=== PATIENT | male | born 1955 ===

== ENCOUNTER 2018-01-25 14:21 | Inpatient (IN) ==
[2018-01-25] MEDS ORDERED: Ondansetron 4 MG/2 ML VIAL IVP PRN (17:27)
[2018-01-25] MEDS ORDERED: Acetaminophen 325 MG TABLET PO PRN (17:28)
[2018-01-25 17:55] LABS: Basophils % 0.5 %; Eosinophils # 0.1 K/mcL (0.0-0.6); Eosinophils % 1.4 %; Hematocrit 29.2 % (37.5-50.1); Hemoglobin 9.1 g/dL (12.9-16.9); Immature Granulocytes % 0.5 % (0-4); Lymphocytes % 12.6 %; Mean Corpuscular HGB Conc 31.2 g/dL (31.6-35.5); Mean Corpuscular Hemoglobin 25.3 pg (28.0-33.3); Mean Corpuscular Volume 81.3 fL (83.0-100.0); Mean Platelet Volume 9.2 fL (9.4-12.4); Monocytes # 0.8 K/mcL (0.0-1.3); Monocytes % 9.5 %; Platelet Count 369 K/mcL (140-400); Red Blood Count 3.59 M/mcL (4.19-5.50); Red Cell Distribution Width 14.6 % (11.5-14.5); Segmented Neutrophils % 75.5 %
[2018-01-25] MEDS ORDERED: D5% in Water 1,000 ML IVC PRN (17:57)
[2018-01-25] MEDS ORDERED: Dextrose Gel 15 GM/37.5 ML TUBE PO PRN ×2 (17:57)
[2018-01-25] MEDS ORDERED: *HR* Dextrose 50 % in Water (Syg) 50 ML SYRINGE IVP PRN (17:57)
[2018-01-25 18:02] LABS: INR 1.2; Prothrombin Time 13.8 Seconds (9.4-12.1)
[2018-01-25] MEDS: OXYCODONE Oral CONC 10 MG/0.5 ML ORAL.SYG SL PRN (18:06)
[2018-01-25] MEDS: *HR* Heparin 5,000 UNIT/ML VIAL SQ SCH (18:07)
--- NOTE | 2018-01-25 18:11 | Internal Med History&Physical ---
<Elroy Wilkinson - Last Filed: 01/25/18 18:01> Date of Encounter: 01/25/18 Time of Encounter: 18:01 Internal Medicine - H&P: HPI Chief complaint: upper extremity weakness Admitted From: Home Plans for Post Hospital Care: Home History of present illness: Mr. Morales is a 62 year old male with a significant pmhx of Type II DM, cardiac stents and peripheral vascular stents on chronic dual antiplatelet therapy seen in the hospital for bilateral upper extremity weakness progressive over the past two months secondary to multiple levels of cervical stenosis. Mr. Morales says that he has had bilateral upper extremity discomfort for months with the worst of it noticable two months ago progressing to almost full loss of function of both upper extremities currently. He has difficulty holding utensils or any motion past flexing at his elbows. He has had pain in both shoulders with radiation down through his hands. He had been taking tylenol for his pain with little improvement. He has followed with Dr. Stubbs and admitted per his request. He denies any recent injuries, loss of bowel or bladder control. He occasionally has difficult with walking long distances do to lower back pain and radiation to his lower extremities. He occasionally has shortness of breath with increased activity. He denies any chest pain or discomfort. He denies any recent illness or other complaints. Past Med Surg Social Fam HX - Past Medical History Medical history: coronary artery disease, diabetes, hyperlipidemia, hypertension, kidney stones, renal disease Additional medical history: CKD stage IV, 4 cardiac stents, 3 stents in each leg Psychiatric history: anxiety, depression - Social History Smoking Status: Former smoker - Family History Mother Living Status: Hx Family Cardiac Disorders: Yes Hx Family Endocrine Disorder: Yes (DM) Internal Medicine - H&P: Meds Allergy/AdvReac Type Severity Reaction Status Date / Time No Known Allergies Allergy Verified 01/25/18 16:06 All Systems PM: A 10-system review of systems was performed and is negative for pertinent findings except as documented above in the HPI. - Constitutional Constitutional: as per HPI, no chills, no fever(s), no falls, no malaise - Cardiovascular Cardiovascular ROS IM: claudication, dyspnea on exertion, no chest pain, no diaphoresis - Respiratory Respiratory: no cough, no hemoptysis, no wheezing - Gastrointestinal Gastrointestinal: no abdominal pain, no constipation, no cramping, no diarrhea, no fecal incontinence - Genitourinary Genitourinary ROS male: no difficulty urinating, no urinary incontinence - Musculoskeletal Musculoskeletal ROS IM: back pain, limited range of motion, muscle weakness, myalgias, neck pain, numbness, tingling - Neurological Neurological ROS: numbness, paresthesias, radicular pain, weakness, no abnormal gait, no abnormal hearing, no abnormal movements, no dizziness - Constitutional Vitals: Temp Pulse Resp BP Pulse Ox 98.0 F 85 16 164/85 99 01/25/18 16:14 01/25/18 16:14 01/25/18 16:14 01/25/18 16:14 01/25/18 16:14 General appearance: Present: A&O X 3 Exam: Gen: alert, oriented, no acute distress, interactive HEENT: NC/AT PERRLA, oral mucosa is moist, neck supple, patient hesitant to perform movements Cardiac: RRR, +S1/S2, Radial pulses 2+ bl Respiratory: CTABL Abdomen: soft nontender to palpation, +BS Extremities/neurology: bilateral upper extremities with 1/5 muscle strength with abduction/adduction/flextion and extension at the glenhumoral joints, 3/5 strength at b/l elbow flexion and 2/5 b/l agronomy internship strength. patient has retained sensation in b/l upper extremities, B/l LE have 5/5 muscle strength. brachial reflex deminished b/l, LE pateller reflex demonstrates 3+ relex on right and 2+ on left. Internal Med - H&P Results - Labs CBC & Chem 7: 01/25/18 17:41 Labs: Short CBC 01/25/18 Range/Units 17:41 WBC 7.9 (4.3-11.1) K/mcL Hgb 9.1 L (12.9-16.9) g/dL Hct 29.2 L (37.5-50.1) % Plt Count 369 (140-400) K/mcL Neutrophils # 6.0 (1.6-8.9) K/mcL - Assessment and plan (1) Cervical stenosis of spinal canal Current Visit: Yes Status: Acute Assessment and plan: multiple levels of central canal stenosis notable at C3/C4, C4/C5, and C5/C6. Patient is symptomatic with significant b/l upper extremity weakness. Plan: - hold plavix and continue ASA prior to surgical intervention - surgical procedure per Dr. 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 (2) PVD (peripheral vascular disease) Current Visit: Yes Status: Acute Assessment and plan: Known hx with stents. - Continue ASA, holding plavix prior to procedure. (3) CAD (coronary artery disease) Current Visit: Yes Status: Acute Assessment and plan: significant CAD hx with cardiac stents in 2004 and PAD stents in 2006 - patient is on dual antiplatelet therapy prior to admission. Qualifiers: Qualified Code(s): I25.10 - Atherosclerotic heart disease of [place] coronary artery without angina pectoris (4) Chronic renal disease, stage IV Current Visit: Yes Status: Acute Assessment and plan: Patient has stated CKD stage IV. 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 - Continue glucose monitoring ACHS - Sliding scale insulin and basal dosing (6) DVT prophylaxis Current Visit: Yes Status: Acute Assessment and plan: SCDs (7) Microcytic anemia Current Visit: Yes Status: Acute Assessment and plan: Hgb 9.1 MCV 81.3 Possibly secondary to chronic kidney disease - monitor with CBC - patient on dual antiplatelet therapy - Time Spent With Patient Total time spent is greater than 50% in coordination of care (as documented) at patient's floor/unit and/or counseling patient: <ShivaKash Uchepraveena - Last Filed: 01/25/18 22:22> Date of Encounter: 01/25/18 Internal Medicine - H&P: HPI History of present illness: Mr. Morales is a 62 year old male All Systems PM: A 10-system review of systems was performed and is negative for pertinent findings except as documented above in the HPI. - Constitutional Vitals: Temp Pulse Resp BP Pulse Ox 98.8 F 102 15 174/81 96 01/25/18 18:54 01/25/18 18:54 01/25/18 18:54 01/25/18 18:54 01/25/18 18:54 Internal Med - H&P Results - Labs CBC & Chem 7: 01/25/18 17:41 01/25/18 17:41 Labs: Short CBC 01/25/18 Range/Units 17:41 WBC 7.9 (4.3-11.1) K/mcL Hgb 9.1 L (12.9-16.9) g/dL Hct 29.2 L (37.5-50.1) % Plt Count 369 (140-400) K/mcL Neutrophils # 6.0 (1.6-8.9) K/mcL BMP 01/25/18 17:41 Sodium 136 Potassium 4.3 Chloride 103 Carbon Dioxide 23 BUN 33 H Creatinine 1.57 H Glucose 147 H Calcium 9.6 - Assessment and plan (1) Cervical stenosis of spinal canal Current Visit: Yes Status: Acute (2) PVD (peripheral vascular disease) Current Visit: Yes Status: Acute (3) CAD (coronary artery disease) Current Visit: Yes Status: Acute Qualifiers: Qualified Code(s): I25.10 - Atherosclerotic heart disease of [place] coronary artery without angina pectoris (4) Chronic renal disease, stage IV Current Visit: Yes Status: Acute (5) 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 I agree with the documented findings, disposition and treatment plan as described except to the extent set forth below. We independently had [id number] contact with the patient.
[2018-01-25 18:15] LABS: Calcium 9.6 mg/dL (8.6-10.3); Potassium 4.3 mEq/L (3.5-5.1)
[2018-01-25] MEDS: Insulin LISPRO 300 UNITS/3 ML VIAL SQ SCH (21:24)
[2018-01-25] MEDS: traMADol 50 MG TABLET PO PRN (21:25)
[2018-01-25] MEDS: Insulin DETEMIR 100 UNIT/ML X5UNITS SQ SCH (21:25)
[2018-01-25] MEDS: Aspirin Enteric Coated 81 MG Tablet PO SCH (22:45)
[2018-01-26] MEDS: OXYCODONE Oral CONC 10 MG/0.5 ML ORAL.SYG SL PRN ×2 (02:05→20:08)
[2018-01-26] MEDS: *HR* Heparin 5,000 UNIT/ML VIAL SQ SCH ×2 (05:25→17:41)
[2018-01-26 05:37] LABS: Hematocrit 27.4 % (37.5-50.1); Hemoglobin 8.5 g/dL (12.9-16.9); Mean Corpuscular Hemoglobin 25.7 pg (28.0-33.3); Mean Corpuscular Volume 82.8 fL (83.0-100.0); Mean Platelet Volume 9.6 fL (9.4-12.4); Platelet Count 324 K/mcL (140-400); Red Blood Count 3.31 M/mcL (4.19-5.50); Red Cell Distribution Width 14.9 % (11.5-14.5)
[2018-01-26 05:55] LABS: Calcium 9.1 mg/dL (8.6-10.3); Potassium 4.3 mEq/L (3.5-5.1)
[2018-01-26] MEDS: Insulin LISPRO 300 UNITS/3 ML VIAL SQ SCH ×4 (07:52→20:37)
--- NOTE | 2018-01-26 08:50 | Internal Med Progress Note ---
<Xavier Boone - Last Filed: 01/26/18 14:57> Hospitalist Progress Note - Encounter Date of Encounter: 01/26/18 Time of Encounter: 08:50 - Subjective Interval History: Patient was seen and examined. In the room, the patient was awake and alert, seated in chair. He states that his symptoms of bilateral upper extremity pain and weakness have not changed since yesterday, and that he is still experiencing moderate to severe pain that is worsened with movement of the extremities. He denies pain in his neck, or any other location on his back, stating that the discomfort is localized to the upper extremities. He also complains of swelling in his hands, worse on the right than the left, that seems to contribute to his pain. He claims that he has been experiencing this swelling periodically for about a month. He endorses recent changes in his gait and weakness in standing up from a seated position. His and daughter, who are in the room, confirm the change in gait, describing it as shuffling and appearing off-balance. He denies any urine or bowel incontinence, pain or numbness in the lower extremities. He denies fever or chills, any vision changes, facial drooping, changes in speech, chest pain or SOB. There were no acute events over night. - Exam Vitals: Temp Pulse Resp BP Pulse Ox 97.9 F 78 15 131/70 97 01/26/18 06:40 01/26/18 06:40 01/26/18 06:40 01/26/18 06:40 01/26/18 06:40 Exam: General: 62 y/o male awake, alert and in NAD sitting conformably in chair H.E.E.N.T: Sclera anicteric, mucus membranes moist, trachea midline Cardiovascular: RRR, no murmurs, normal S1/S2, rubs, or gallops Respiratory: LCTA bilaterally, no wheezing, crackles or rhonchi Abdomen: Soft, non-distended, non-tender, no guarding, bowel sounds present and normal throughout Extremities: no cyanosis, no clubbing, no edema in upper or lower extremities Neuro: weakness and significant reduction in ROM in bilateral upper extremities, no other apparent focal deficits Psych: Behavior and affect appropriate for situation - Assessment and Plan (1) Cervical stenosis of spinal canal Current Visit: Yes Status: Acute Assessment and Plan: Patient is a 62 y/o male who presented for evaluation of persistent, worsening bilateral upper extremity pain and weakness. The patient follows with a neurologist who has identified cervical spinal stenosis on prior MRI. The patient is scheduled to undergo anterior cervical decompression with fusion of C4-C6 either later this week or early next week. Plavix still being held. Continue to provide appropriate pain control consult to cardiology for cardiac clearance prior to surgery due to his multiple co morbidities and cardiac risk factors. (2) CAD (coronary artery disease) Current Visit: Yes Status: Chronic Assessment and Plan: significant CAD hx with cardiac stents in 2004 and PAD stents in 2006 On dual antiplatelet therapy with ASA and Plavix Continue current statin, aspirin. holding plavix in anticipation for surgery. 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 (5) PVD (peripheral vascular disease) Current Visit: Yes Status: Chronic Assessment and Plan: Patient currently on statin therapy (6) DVT prophylaxis Current Visit: Yes Status: Acute Assessment and Plan: Continue Heparin SQ 5,000 units (7) Microcytic anemia Current Visit: Yes Status: Acute Assessment and Plan: Recommend continuation of Ferrous sulfate - Time Spent with Patient Total time spent is greater than 50% in coordination of care (as documented) at patient's floor/unit and/or counseling patient: 25 - 35 minutes Plan of Care Discussed with: patient Internal Medicine: Result - Labs CBC & Chem 7: 01/26/18 05:00 01/26/18 05:00 Labs: Short CBC 01/25/18 01/26/18 Range/Units 17:41 05:00 WBC 7.9 7.1 (4.3-11.1) K/mcL Hgb 9.1 L 8.5 L (12.9-16.9) g/dL Hct 29.2 L 27.4 L (37.5-50.1) % Plt Count 369 324 (140-400) K/mcL Neutrophils # 6.0 (1.6-8.9) K/mcL BMP 01/25/18 01/26/18 17:41 05:00 Sodium 136 136 Potassium 4.3 4.3 Chloride 103 102 Carbon Dioxide 23 25 BUN 33 H 34 H Creatinine 1.57 H 1.62 H Glucose 147 H 139 H Calcium 9.6 9.1 - ABG Interpretation ABG results: PT/INR, D-dimer PT 13.8 Seconds (9.4-12.1) H 01/25/18 17:41 Consult Discharge Plan - Plan Referrals: NONE,PCP [Primary Care Provider] - <Tasha Shannon - Last Filed: 01/26/18 22:20> Hospitalist Progress Note - Encounter Date of Encounter: 01/26/18 - Exam Vitals: Temp Pulse Resp BP Pulse Ox 98.5 F 89 16 146/79 99 01/26/18 18:37 01/26/18 18:37 01/26/18 18:37 01/26/18 18:37 01/26/18 18:37 - Assessment and Plan (1) Cervical stenosis of spinal canal Current Visit: Yes Status: Acute (2) PVD (peripheral vascular disease) Current Visit: Yes Status: Chronic (3) CAD (coronary artery disease) Current Visit: Yes Status: Chronic (4) Chronic renal disease, stage IV Current Visit: Yes Status: Chronic (5) 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 Current Visit: Yes Status: Chronic (6) DVT prophylaxis Current Visit: Yes Status: Acute (7) Microcytic anemia Current Visit: Yes Status: Acute - Time Spent with Patient Total time spent is greater than 50% in coordination of care (as documented) at patient's floor/unit and/or counseling patient: Internal Medicine: Result - Labs CBC & Chem 7: 01/26/18 05:00 01/26/18 05:00 Labs: Short CBC 01/26/18 Range/Units 05:00 WBC 7.1 (4.3-11.1) K/mcL Hgb 8.5 L (12.9-16.9) g/dL Hct 27.4 L (37.5-50.1) % Plt Count 324 (140-400) K/mcL BMP 01/26/18 05:00 Sodium 136 Potassium 4.3 Chloride 102 Carbon Dioxide 25 BUN 34 H Creatinine 1.62 H Glucose 139 H Calcium 9.1 - ABG Interpretation ABG results: PT/INR, D-dimer PT 13.8 Seconds (9.4-12.1) H 01/25/18 17:41 - Attending Attestation I examined this patient and my medical decision making was reviewed with the Resident Physician. I agree with the documented findings, disposition and treatment plan as described except to the extent set forth below. We independently had [id number] contact with the patient. _ <Xavier Boone - Last Filed: 01/26/18 14:57> (2) CAD (coronary artery disease) Qualifiers: Coronary Disease-Associated Artery/Lesion type: [place] artery [place] vs. transplanted heart: [place] heart Associated angina: without angina Qualified Code(s): I25.10 - Atherosclerotic heart disease of [place] coronary artery without angina pectoris <Tasha Shannon - Last Filed: 01/26/18 22:20> (3) CAD (coronary artery disease) Qualifiers: Coronary Disease-Associated Artery/Lesion type: [place] artery [place] vs. transplanted heart: [place] heart Associated angina: without angina Qualified Code(s): I25.10 - Atherosclerotic heart disease of [place] coronary artery without angina pectoris
[2018-01-26] MEDS ORDERED: INSULIN GLARGINE 22 UNIT SQ SCH (09:00)
[2018-01-26] MEDS: Aspirin Enteric Coated 81 MG Tablet PO SCH (09:21)
[2018-01-26] MEDS: Cyanocobalamin (B-12) 1,000 MCG TABLET PO SCH (09:24)
--- NOTE | 2018-01-26 10:54 | Spinal Consult Note ---
Date of Encounter: 01/26/18 Time of Encounter: 10:45 Assessment and Plan (1) Cervical myelopathy Current Visit: Yes Status: Chronic He is afebrile, vital signs stable. he has significant weakness with weakness and limitation in abduction bilaterally, biceps, triceps, external rotators all approximately 3 on a motor scale. Substitute Nurse strength is markedly diminished. He has a positive Hoffmans sign. He has a positive inverted radial reflex. His hips move symmetrically. Motor strength is intact in the bilateral lower extremities. He has no clonus. MRI of the cervical spine dated 01/12/2018 reveals multilevel degenerative changes and disc desiccation. There is severe stenosis with spinal cord compression at C4-5 and C5-6. There is some bilateral foraminal stenosis which is moderate at C3-4. Impression. 1) Severe cervical stenosis 2) Cervical Myelopathy 3) Progressive upper extremity weakness. Plan: Due to his severe findings on cervical MRI, abnormal neurologic evaluation including upper motor neuron findings, and progressive weakness I find it reasonable to consider surgery in the form of an anterior cervical decompression and fusion C4-C6. The patient has multiple medical comorbidities including chronic anti-coagulation therapy with Plavix. He will need medical op including holding his Plavix for 5 days for optimal surgical result without complication. Risk, benefits, possible complications were discussed and the patient would like to proceed. (2) Upper extremity weakness Current Visit: Yes Status: Chronic History of Present Illness Chief complaint: Severe weakness in arms, hands HPI: Mr. Morales is a 62 year old male who complains of a two month history of progressive weakness in the bilateral upper extremities. He has reached the point where he cannot lift his arms to sh oulder level and he has severe impairment in hand dexterity such that he can no longer utensils. He is now developing some gait instability. He was seen in the office setting and due to aggressive neurologic compromise was admitted for definitive management. He has a history of mulltiple severe medical comorbidities including coronary artery disease, cardiac and peripheral stent placement, chronic anticoagulation, diabetes, and stage IV renal failure. He is on the hospitalist service for medical optimization and clearance prior to surgical intervention. Past Med Surg Social Fam HX - Past Medical History Medical history: coronary artery disease, diabetes, hyperlipidemia, hypertension, kidney stones, renal disease Additional medical history: CKD stage IV, 4 cardiac stents, 3 stents in each leg Psychiatric history: anxiety, depression - Social History Smoking Status: Former smoker - Family History Mother Living Status: Hx Family Cardiac Disorders: Yes Hx Family Endocrine Disorder: Yes (DM) Medications and Allergies Aspirin [Adult Aspirin] 81 mg PO DAILY 01/25/18 [History] Clopidogrel [Plavix] 75 mg PO DAILY 01/25/18 [History] Cyanocobalamin (Vitamin B-12) [Vitamin B12] 1,000 mcg PO DAILY 01/25/18 [History] Ferrous Sulfate [Iron] 325 mg PO BID 01/25/18 [History] Insulin ASPART [NovoLOG] See Protocol SQ TIDWM 01/25/18 [History] Insulin Glargine [Lantus] 22 units SQ DAILY 01/25/18 [History] Losartan [Cozaar] 50 mg PO DAILY 01/25/18 [History] Lovastatin 40 mg PO DAILY 01/25/18 [History] Metoprolol [Lopressor] 12.5 mg PO BID 01/25/18 [History] [place]-3/Dha/Epa/Fish Oil [Fish Oil 1,000 mg Softgel] 1,000 mg PO DAILY 01/25/18 [History] Allergy/AdvReac Type Severity Reaction Status Date / Time No Known Allergies Allergy Verified 01/25/18 16:06 Results - Labs Result Diagrams: 01/26/18 05:00 01/26/18 05:00 Labs: Abnormal lab results RBC 3.31 M/mcL (4.19-5.50) L 01/26/18 05:00 Hgb 8.5 g/dL (12.9-16.9) L 01/26/18 05:00 Hct 27.4 % (37.5-50.1) L 01/26/18 05:00 MCV 82.8 fL (83.0-100.0) L 01/26/18 05:00 MCH 25.7 pg (28.0-33.3) L 01/26/18 05:00 MCHC 31.0 g/dL (31.6-35.5) L 01/26/18 05:00 RDW 14.9 % (11.5-14.5) H 01/26/18 05:00 PT 13.8 Seconds (9.4-12.1) H 01/25/18 17:41 BUN 34 mg/dL (8-23) H 01/26/18 05:00 Creatinine 1.62 mg/dL (0.70-1.30) H 01/26/18 05:00 Est GFR ( Amer) 52 (> 60) L 01/26/18 05:00 Est GFR (Non-Af Amer) 43 (> 60) L 01/26/18 05:00 Glucose 139 mg/dL (70-105) H 01/26/18 05:00 POC Glucose 306 mg/dL (70-99) H 01/25/18 20:25 H & H 01/25/18 01/26/18 Range/Units 17:41 05:00 Hgb 9.1 L 8.5 L (12.9-16.9) g/dL Hct 29.2 L 27.4 L (37.5-50.1) % All other labs normal. Consult Discharge Plan - Plan Referrals: NONE,PCP [Primary Care Provider] -
--- NOTE | 2018-01-26 14:30 | Cardiology Consult Note ---
<Vishal Lopez - Last Filed: 01/26/18 15:15> Date of Encounter: 01/26/18 Time of Encounter: 14:24 Assessment and Plan (1) Preop cardiovascular exam Current Visit: Yes Status: Acute 62 y/o male admitted for severe cervical spinal stenosis with plan for anterior cervical spinal decompression former smoker (last smoked in 1988), no hx of CVA RSI risk is 3 points which is Class IV with 11% major cardiac event. patient follow Dr. Argueta at [place] and no records are on file for his cardiac history. Will need to obtain echocardiogram, previous cardiac stress testing, procedures He also is noted to have microcytic anemia unclear etiology, Patient is on aspirin plavix. reports his diabetes is not controlled but we do not have records ECG shows sinus rhythm with rate of 90 with non-specific st-twave changes, LVH, without ST elevation or depression. Patient is high risk based solely on RCRI as stated above. However, we also do not have records from his PCP/[employer] [employer] [facility] to evaluate his LV function, functional status. We have requested records. We will also order echocardiogram. 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 Qualifiers: Coronary Disease-Associated Artery/Lesion type: [place] artery [place] vs. 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 (7) Microcytic anemia Current Visit: Yes Status: Acute unclear etiology of microcytic anemia patient is on iron supplementation unclear if he has had GI evaluation for the anemia will obtain records Discussion w patient/family: The assessment and plan as outlined above was discussed with the patient and/or family members who expressed understanding and agreement. All questions were answered. Thank you for involving us in the care of your patient. Please call with any questions. History of Present Illness Consult date: 01/26/18 Consult reason: cardiac clearance Chief complaint: weakness in arms and hands History of present illness: Mr. Morales is a 62 year old male hx of CAD s/p PCI, CKD 4, DM, presents with cc of severe weaness in arms and hands. Patient has been followed by Dr. Stubbs for cervical myelopathy and has progressive weakness in the last two months with b/l upper extremity weakness. Patient has severe stenosis with spinal cord compression at C4-5 and C5-6. Spinal surgery is planning on anterior cerbical decompression and fusion of C4-C6 and requested cardiac clearance. Patient has history of CAD on aspirin, plavix, statin with last PCI in 2004. He follows [facility] at [place] Dr. Argueta. Also reports he had PVD and stent placed in his LLE in 2006. Since then patient has not had any cardiac events. He is a former smoker and quit 1988. He denies drinking alcohol. Patient reports his DM is not controlled but we do not have any records to review this. His last surgery was three years ago for renal stone extraction and he did not have any complications from this. Reports he is able to walk long distances but this is limited due to pain in his b/l shoulders but denies exertional dsypena or chest pain. Past Med Surg Social Fam HX - Past Medical History Medical history: coronary artery disease, diabetes, hyperlipidemia, hypertension, kidney stones, renal disease Additional medical history: CKD stage IV, 4 cardiac stents, 3 stents in each leg Psychiatric history: anxiety, depression - Social History Smoking Status: Former smoker - Family History Mother Living Status: Hx Family Cardiac Disorders: Yes Hx Family Endocrine Disorder: Yes (DM) Medications and Allergies Aspirin [Adult Aspirin] 81 mg PO DAILY 01/25/18 [History] Clopidogrel [Plavix] 75 mg PO DAILY 01/25/18 [History] Cyanocobalamin (Vitamin B-12) [Vitamin B12] 1,000 mcg PO DAILY 01/25/18 [History] Ferrous Sulfate [Iron] 325 mg PO BID 01/25/18 [History] Insulin ASPART [NovoLOG] See Protocol SQ TIDWM 01/25/18 [History] Insulin Glargine [Lantus] 18 - 22 units SQ DAILY 01/25/18 [History] Losartan [Cozaar] 50 mg PO DAILY 01/25/18 [History] Lovastatin 40 mg PO DAILY 01/25/18 [History] Metoprolol [Lopressor] 12.5 mg PO BID 01/25/18 [History] [place]-3/Dha/Epa/Fish Oil [Fish Oil 1,000 mg Softgel] 1,000 mg PO DAILY 01/25/18 [History] Diclofenac Sodium [Voltaren] 1 applic TP BID PRN 01/26/18 [History] Allergy/AdvReac Type Severity Reaction Status Date / Time No Known Allergies Allergy Verified 01/26/18 14:50 All Systems Review: The remainder of the systems were reviewed and are negative Review of Systems: Constitutional: Denies fever, chills HEENT: Denies headache, trauma, blurry vision, eye discharge, ear pain, ear discharge neck pain, sore throat, rhinorrhea Heart: Denies chest pain palpitations, LE edema Lungs: Denies shortness of breath cough Abdomen: Denies abdominal pain nausea vomiting diarrhea MSK: Denies back pain, falls, joint pain Kidney: Denies dysuria, hematuria Skin: Denies rash, ulcers Neuro: Reports weakness in bilateral upper extremities unable to lift bilateral arms above shoulder. Psych: denies axniety, depression Physical Examination Vital Signs, Last 4 Hours Temp Pulse Resp BP Pulse Ox 01/26/18 11:43 97.8 F 77 15 126/63 99 General: Conversant, No Apparent Distress HEENT: Atraumatic, Normocephaly, Mucus Membranes Moist Neck: No JVD, Normal carotid pulses Cardiac: Reg Rate and Rhythm, Normal S1 and S2, No Murmur Lungs: Normal Breath Sounds, No Wheeze, Rales, Rhonchi Neuro: Alert and responsive, Other (b/l UE weakness.) Abdomen: Soft, Non-Tender Skin: No rashes noted on visualized skin Musculoskeletal: No Chest Wall Tenderness Extremities: No Clubbing, No Cyanosis, No Edema, Normal Pulses Results 01/26/18 05:00 01/26/18 05:00 Lab Results 01/25/18 01/25/18 01/25/18 17:41 17:41 17:41 WBC 7.9 Hgb 9.1 L Hct 29.2 L Plt Count 369 INR 1.2 Sodium 136 Potassium 4.3 Chloride 103 Carbon Dioxide 23 BUN 33 H Creatinine 1.57 H Glucose 147 H Calcium 9.6 01/26/18 01/26/18 05:00 05:00 WBC 7.1 Hgb 8.5 L Hct 27.4 L Plt Count 324 INR Sodium 136 Potassium 4.3 Chloride 102 Carbon Dioxide 25 BUN 34 H Creatinine 1.62 H Glucose 139 H Calcium 9.1 Consult Discharge Plan - Plan Referrals: NONE,PCP [Primary Care Provider] - <Kamilla Hylton - Last Filed: 01/26/18 16:39> Date of Encounter: 01/26/18 - Attending Attestation I examined this patient and my medical decision-making was reviewed with the Joni fabian Physician. I agree with the documented findings, disposition and treatment plan as described except to the extent set forth below. Mr. Morales is admitted to the hospital pre procedurally prior to undergoing Anterior Cervical Spinal Decompression for spinal stenosis. Patient sitting up with at bedside. Denies any recent chest pain. Admits to poor functional capacity as a result of orthopedic limitations. Follows with Cardiology in [place], Dr. Argueta, last seen about 6 months ago. Last stress test several years ago. AAOx3, NAD Vital signs stable Exam demonstrates regular rhythm, no appreciable cardiac murmur, bowel sounds present, no significant LE edema, palpable pedal pulses Labs reviewed ECG from admission demonstrates NSR, possible LVH without acute ST findings Impression: 1. Preoperative Cardiovascular Risk Assessment: Patient denies cardiac symptoms but endorses poor functional capacity. RCRI is 2 placing patient at moderate risk. He hasn't had an ischemic evaluation in quite some time and has known CAD. In anticipation of spinal surgery under general anesthesia, would recommend an ischemic evaluation with stress testing help with risk stratifica tion. Patient and aware and agree. Will plan for Wednesday given the . Assessment and Plan Discussion w patient/family: The assessment and plan as outlined above was discussed with the patient and/or family members who expressed understanding and agreement. All questions were answered. Thank you for involving us in the care of your patient. Please call with any questions. History of Present Illness History of present illness: Mr. Morales is a 62 year old male All Systems Review: The remainder of the systems were reviewed and are negative Physical Examination Vital Signs, Last 4 Hours Temp Pulse Resp BP Pulse Ox 01/26/18 16:30 98.1 F 79 14 130/77 100 Results 01/26/18 05:00 01/26/18 05:00 Lab Results 01/25/18 01/25/18 01/25/18 17:41 17:41 17:41 WBC 7.9 Hgb 9.1 L Hct 29.2 L Plt Count 369 INR 1.2 Sodium 136 Potassium 4.3 Chloride 103 Carbon Dioxide 23 BUN 33 H Creatinine 1.57 H Glucose 147 H Calcium 9.6 01/26/18 01/26/18 05:00 05:00 WBC 7.1 Hgb 8.5 L Hct 27.4 L Plt Count 324 INR Sodium 136 Potassium 4.3 Chloride 102 Carbon Dioxide 25 BUN 34 H Creatinine 1.62 H Glucose 139 H Calcium 9.1
[2018-01-26] MEDS: Insulin DETEMIR 100 UNIT/ML X5UNITS SQ SCH (20:35)
[2018-01-27] MEDS: OXYCODONE Oral CONC 10 MG/0.5 ML ORAL.SYG SL PRN ×3 (02:36→16:49)
[2018-01-27 05:33] LABS: Basophils % 0.6 %; Eosinophils # 0.2 K/mcL (0.0-0.6); Hemoglobin 8.3 g/dL (12.9-16.9); Immature Granulocytes % 0.8 % (0-4); Lymphocytes # 1.3 K/mcL (0.6-4.6); Lymphocytes % 19.9 %; Mean Corpuscular HGB Conc 30.7 g/dL (31.6-35.5); Mean Corpuscular Hemoglobin 25.3 pg (28.0-33.3); Mean Corpuscular Volume 82.3 fL (83.0-100.0); Mean Platelet Volume 9.5 fL (9.4-12.4); Monocytes # 0.9 K/mcL (0.0-1.3); Monocytes % 14.6 %; Neutrophils # 3.8 K/mcL (1.6-8.9); Platelet Count 306 K/mcL (140-400); Red Blood Count 3.28 M/mcL (4.19-5.50); Segmented Neutrophils % 61.1 %
[2018-01-27] MEDS: *HR* Heparin 5,000 UNIT/ML VIAL SQ SCH ×2 (05:42→17:05)
[2018-01-27 05:55] LABS: Calcium 8.7 mg/dL (8.6-10.3); Potassium 4.2 mEq/L (3.5-5.1)
[2018-01-27] MEDS ORDERED: 0.9 % Sodium Chloride 1,000 ML IVC SCH (06:15)
[2018-01-27] MEDS: Insulin LISPRO 300 UNITS/3 ML VIAL SQ SCH ×4 (08:00→21:53)
--- NOTE | 2018-01-27 08:02 | Internal Med Progress Note ---
<Xavier Boone Raoul - Last Filed: 01/27/18 12:07> Hospitalist Progress Note - Encounter Date of Encounter: 01/27/18 Time of Encounter: 08:00 - Subjective Interval History: Patient was seen and examined. No acute events overnight. Patient is still awaiting surgery which is anticipated for 01/28. No coagulation studies to report today. Cardiology has ordered myocardial perfusion scan for tomorrow morning for preoperative evaluation. In the room, the patient is awake and alert, seated in chair having breakfast. He is still experiencing symptoms of bilateral upper extremity pain and weakness that is unchanged since yesterday, and that he is still experiencing moderate to severe pain that is worsened with movement of the extremities. He denies any worsening pain or weakness in the lower extremities. He reports improvement in swelling of his hands, but is still experiencing moderate pain in both hands. He denies any urine or bowel incontinence, but reports that he hasn't had a bowel movement in 2 days, stating that he typically has bowel movements daily. He denies any episodes of slurred speech, vision changes or confusion. He denies pain, numbness or swelling in the lower extremities. He denies fever or chills, chest pain or SOB. - Exam Vitals: Temp Pulse Resp BP Pulse Ox 98.7 F 76 16 131/75 97 01/27/18 06:58 01/27/18 06:58 01/27/18 06:58 01/27/18 06:58 01/27/18 06:58 Exam: General: 62 y/o male awake, alert and in NAD sitting conformably in chair H.E.E.N.T: Sclera anicteric, mucus membranes moist, PERRL Cardiovascular: RRR, normal S1/S2, no murmurs, rubs or gallops Respiratory: LCTA bilaterally, no wheezing, crackles or rhonchi Abdomen: soft, non-distended, non-tender, no guarding, bowel sounds present and normal throughout Extremities: no cyanosis, no clubbing, no edema in upper or lower extremities Neuro: weakness and significant reduction in ROM in bilateral upper extremities, no other apparent focal deficits Psych: Behavior and affect appropriate for situation - Assessment and Plan (1) Cervical stenosis of spinal canal Current Visit: Yes Status: Acute Assessment and Plan: Patient is a 62 y/o male who presented for evaluation of persistent, worsening bilateral upper extremity pain and weakness. The patient follows with spinal surgeon who has identified significant cervical spinal stenosis on prior MRI. The patient is scheduled to undergo anterior cervical decompression with fusion of C4-C6 either later this week or early next week. Plavix still being held. Continue to provide appropriate pain control consult to cardiology for cardiac clearance prior to surgery due to his multiple comorbidities and cardiac risk factors. (2) CAD (coronary artery disease) Current Visit: Yes Status: Chronic Assessment and Plan: significant CAD hx with cardiac stents in 2004 and PAD stents in 2006 On dual antiplatelet therapy with ASA and Plavix Cardiology has ordered myocardial perfusion scan for preoperative evaluation to be performed tomorrow morning. Echocardiogram performed yesterday showed EF of 50%, mild LV diastolic dysfunction and no significant valvular dysfunction Continue current statin, aspirin. holding plavix in anticipation for surgery. (3) Chronic renal disease, stage IV Current Visit: Yes Status: Chronic Assessment and Plan: Kidney function worsening with increase in SCr to 1.7 today; will 1 L IVNS and re-evaluate BMP. 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 Current Visit: Yes Status: Chronic Assessment and Plan: Continue regimen with low-dose sliding scale (5) PVD (peripheral vascular disease) Current Visit: Yes Status: Chronic Assessment and Plan: Continue current statin therapy (6) DVT prophylaxis Current Visit: Yes Status: Acute Assessment and Plan: Continue heparin 5,000 units SQ daily (7) Microcytic anemia Current Visit: Yes Status: Acute Assessment and Plan: Continue current ferrous sulfate regimen - Time Spent with Patient Total time spent is greater than 50% in coordination of care (as documented) at patient's floor/unit and/or counseling patient: Internal Medicine: Result - Labs CBC & Chem 7: 01/27/18 05:02 01/27/18 05:02 Labs: Short CBC 01/27/18 Range/Units 05:02 WBC 6.3 (4.3-11.1) K/mcL Hgb 8.3 L (12.9-16.9) g/dL Hct 27.0 L (37.5-50.1) % Plt Count 306 (140-400) K/mcL Neutrophils # 3.8 (1.6-8.9) K/mcL BMP 01/27/18 05:02 Sodium 136 Potassium 4.2 Chloride 103 Carbon Dioxide 26 BUN 36 H Creatinine 1.72 H Glucose 105 Calcium 8.7 - ABG Interpretation ABG results: PT/INR, D-dimer PT 13.8 Seconds (9.4-12.1) H 01/25/18 17:41 Consult Discharge Plan - Plan Referrals: NONE,PCP [Primary Care Provider] - <Tasha Shannon - Last Filed: 01/27/18 18:18> Hospitalist Progress Note - Encounter Date of Encounter: 01/27/18 - Exam Vitals: Temp Pulse Resp BP Pulse Ox 99.1 F 90 15 165/75 100 01/27/18 15:56 01/27/18 15:56 01/27/18 15:56 01/27/18 15:56 01/27/18 15:56 - Assessment and Plan (1) Cervical stenosis of spinal canal Current Visit: Yes Status: Acute (2) PVD (peripheral vascular disease) Current Visit: Yes Status: Chronic (3) CAD (coronary artery disease) Current Visit: Yes Status: Chronic (4) Chronic renal disease, stage IV Current Visit: Yes Status: Chronic (5) 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 Current Visit: Yes Status: Chronic (6) DVT prophylaxis Current Visit: Yes Status: Acute (7) Microcytic anemia Current Visit: Yes Status: Acute - Time Spent with Patient Total time spent is greater than 50% in coordination of care (as documented) at patient's floor/unit and/or counseling patient: Internal Medicine: Result - Labs CBC & Chem 7: 01/27/18 05:02 01/27/18 05:02 Labs: Short CBC 01/27/18 Range/Units 05:02 WBC 6.3 (4.3-11.1) K/mcL Hgb 8.3 L (12.9-16.9) g/dL Hct 27.0 L (37.5-50.1) % Plt Count 306 (140-400) K/mcL Neutrophils # 3.8 (1.6-8.9) K/mcL BMP 01/27/18 05:02 Sodium 136 Potassium 4.2 Chloride 103 Carbon Dioxide 26 BUN 36 H Creatinine 1.72 H Glucose 105 Calcium 8.7 - ABG Interpretation ABG results: PT/INR, D-dimer PT 13.8 Seconds (9.4-12.1) H 01/25/18 17:41 - Impressions Impressions Echocardiogram 01/26/18 15:18 Impressions: LVEF 50%. Normal LV chamber size, wall thickness and low normal function. Mild left ventricular diastolic dysfunction. Normal right ventricular structure and function. Unable to estimate RVSP due to lack of adequate TR jet. No significant valvular dysfunction. Left Ventricular Wall Motion: Rest Echo Findings All wall segments showed normal motion. Findings: Study Quality * Technically adequate exam. ECG Findings * Normal sinus rhythm. Left Ventricle * LVEF 50%. * Normal LV chamber size, wall thickness and low normal function. * Mild left ventricular diastolic dysfunction. Right Ventricle * Normal right ventricular structure and function. Left Atrium * Mildly dilated left atrium. Right Atrium * Normal right atrial size. Aortic Valve * Trileaflet aortic valve with normal function. * No aortic stenosis. * No aortic regurgitation. Mitral Valve * Normal mitral valve structure and function. * No mitral regurgitation. * No mitral stenosis. Tricuspid Valve * Normal tricuspid valve structure and function. * No tricuspid regurgitation. * Unable to estimate RVSP due to lack of adequate TR jet. Pulmonic Valve * Pulmonic valve not well visualized. * No pulmonic regurgitation. Aorta * Normally sized aortic root. Pericardium * The pericardium appears normal. IVC * Normal IVC dimensions and inspiratory collapse. Pulmonary Artery * Normal visualized portions of the main pulmonary artery. - Attending Attestation I examined this patient and my medical decision making was reviewed with the Medical Student. I agree with the documented findings, disposition and treatment plan as described except to the extent set forth below. We independently had [id number] contact with the patient. No acute events. Patient has upper extremity weakness about the same in his opinion. Physical exam consistent with this. His upper extremities display weakness bilaterally about the same compared to my exam yesterday. VS: reviewed. Await stress test, pending cardiac clearance. <Xavier Boone - Last Filed: 01/27/18 12:07> (2) CAD (coronary artery disease) Qualifiers: Coronary Disease-Associated Artery/Lesion type: [place] artery [place] vs. [place] heart: [place] heart Associated angina: without angina Qualified Code(s): I25.10 - Atherosclerotic heart disease of [place] coronary artery without angina pectoris <Tasha Shannon - Last Filed: 01/27/18 18:18> (3) CAD (coronary artery disease) Qualifiers: Coronary Disease-Associated Artery/Lesion type: [place] artery [place] vs. transplanted heart: [place] heart Associated angina: without angina Qualified Code(s): I25.10 - Atherosclerotic heart disease of [place] coronary artery without angina pectoris
--- NOTE | 2018-01-27 08:29 | Electrocardiograph Report ---
[place] [id number] Test Date: 2018-01-25 Pat Name: Logan Morales Department: 114 Room: [facility] Gender: M Penology Professor: : [id number] Requested By: Caty Shannon Order Number: [id number] Reading MD: Kavon Boss Measurements Intervals Julian Rate: 90 P: 44 SD: 203 QRS: -11 QRSD: 97 T: 13 QT: 355 QTc: 402 Interpretive Statements SINUS RHYTHM LEFT VENTRICULAR HYPERTROPHY AND ST-T CHANGE Electronically Signed On 01-27-2018 8:27:42 EST by Kavon Boss
--- NOTE | 2018-01-27 08:44 | Event Note ---
Date of Encounter: 01/27/18 Time of Encounter: 08:43 - Cardiology Event Note Plan for pharmacologic nuclear stress test tomorrow AM (01/28) for pre-op risk stratification. Pt agreeable. NPO after midnight. Will follow-up tomorrow after stress test results.
[2018-01-27] MEDS: Cyanocobalamin (B-12) 1,000 MCG TABLET PO SCH (09:04)
[2018-01-27] MEDS: Aspirin Enteric Coated 81 MG Tablet PO SCH (09:04)
[2018-01-27] MEDS: Insulin DETEMIR 100 UNIT/ML X5UNITS SQ SCH (20:22)
[2018-01-28 04:07] LABS: Basophils # 0.1 K/mcL (0.0-0.2); Basophils % 0.7 %; Eosinophils # 0.2 K/mcL (0.0-0.6); Eosinophils % 2.9 %; Hematocrit 23.8 % (37.5-50.1); Hemoglobin 7.3 g/dL (12.9-16.9); Immature Granulocytes % 0.7 % (0-4); Lymphocytes # 1.4 K/mcL (0.6-4.6); Lymphocytes % 19.7 %; Mean Corpuscular HGB Conc 30.7 g/dL (31.6-35.5); Mean Corpuscular Hemoglobin 25.3 pg (28.0-33.3); Mean Corpuscular Volume 82.4 fL (83.0-100.0); Mean Platelet Volume 9.7 fL (9.4-12.4); Monocytes % 14.7 %; Neutrophils # 4.3 K/mcL (1.6-8.9); Platelet Count 281 K/mcL (140-400); Red Blood Count 2.89 M/mcL (4.19-5.50); Segmented Neutrophils % 61.3 %
[2018-01-28 04:25] LABS: Calcium 8.6 mg/dL (8.6-10.3); Potassium 4.1 mEq/L (3.5-5.1)
[2018-01-28] MEDS: *HR* Heparin 5,000 UNIT/ML VIAL SQ SCH ×2 (05:26→17:16)
[2018-01-28] MEDS: OXYCODONE Oral CONC 10 MG/0.5 ML ORAL.SYG SL PRN ×2 (05:50→20:33)
[2018-01-28] MEDS ORDERED: Regadenoson 0.4 MG/5 ML SYRINGE IVP ONE (06:04)
--- NOTE | 2018-01-28 07:42 | Internal Med Progress Note ---
<Xavier Boone - Last Filed: 01/28/18 13:21> Hospitalist Progress Note - Encounter Date of Encounter: 01/28/18 Time of Encounter: 07:38 - Subjective Interval History: Patient was seen and examined. No acute events overnight. Cardiology to perform nuclear stress test this morning for cardiac clearance prior to surgery; awaiting report. In the room, the patient is awake and alert, seated in chair. He is still experiencing baseline symptoms of bilateral upper extremity pain and weakness that is unchanged since yesterday. He denies any worsening pain or weakness in the lower extremities. He reports improvement in swelling of his hands, but is still experiencing moderate pain in both hands. He denies any urine or bowel incontinence or hematuria, but reports that he still hasn't had a bowel movement in 3 days. He would consider receiving a stool softener today. He denies any episodes of slurred speech, vision changes or confusion. He denies pain, numbness or swelling in the lower extremities. He denies fever or chills, chest pain or SOB. - Exam Vitals: Temp Pulse Resp BP Pulse Ox 98.3 F 72 18 164/79 100 01/28/18 06:31 01/28/18 06:31 01/28/18 06:31 01/28/18 06:31 01/28/18 06:31 Exam: General: 62 y/o male awake, alert and in NAD sitting conformably in chair H.E.E.N.T: Sclera anicteric, mucus membranes moist, PERRL Cardiovascular: RRR, normal S1/S2, no murmurs, rubs or gallops Respiratory: LCTA bilaterally, no wheezing, crackles or rhonchi Abdomen: soft, non-distended, non-tender, no guarding, bowel sounds present and normal throughout Extremities: no cyanosis, no clubbing, no edema in lower extremities, + 2 edema in hands, worse on left than right Neuro: continued weakness and significant reduction in ROM in bilateral upper extremities, no other apparent focal deficits Psych: Behavior and affect appropriate for situation - Assessment and Plan (1) Cervical stenosis of spinal canal Current Visit: Yes Status: Acute Assessment and Plan: Patient is a 62 y/o male who presented for evaluation of persistent, worsening bilateral upper extremity pain and weakness. The patient follows with spinal surgeon who has identified significant cervical spinal stenosis on prior MRI. The patient is scheduled to undergo anterior cervical decompression with fusion of C4-C6 either later this week or early next week. Plavix still being held. Continue to provide appropriate pain control consult to cardiology for cardiac clearance prior to surgery due to his multiple comorbidities and cardiac risk factors. (2) CAD (coronary artery disease) Current Visit: Yes Status: Chronic Assessment and Plan: significant CAD hx with cardiac stents in 2004 and PAD stents in 2006 On dual antiplatelet therapy with ASA and Plavix Patient had myocardial perfusion scan for preoperative cardiac clearance this morning; study releaved gated EF of 40%, dilated LV with LVEDV of 176 mL, small, moderate intensity apical lateral defect with normal wall motion suggestive of artifact; perfusion imaging was negative for ischemia Echocardiogram performed 01/26 this admission showed EF of 50%, mild LV diastolic dysfunction and no significant valvular dysfunction Continue current statin, aspirin. holding plavix in anticipation for surgery. (3) Chronic renal disease, stage IV Current Visit: Yes Status: Chronic Assessment and Plan: Kidney function worsening with increase in SCr to 1.83 today; UA, urine Na pend ing; BMP in a.m. Retroperitoneal US ordered; results pending . 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 Current Visit: Yes Status: Chronic Assessment and Plan: Continue regimen with low-dose sliding scale (5) PVD (peripheral vascular disease) Current Visit: Yes Status: Chronic Assessment and Plan: Continue current statin therapy (6) DVT prophylaxis Current Visit: Yes Status: Acute Assessment and Plan: Continue Heparin 5,000 units SQ daily (7) Microcytic anemia Current Visit: Yes Status: Acute Assessment and Plan: Hgb decreased to 7.3 today, repeat CBC and iron studies pending Continue current ferrous sulfate regimen - Time Spent with Patient Total time spent is greater than 50% in coordination of care (as documented) at patient's floor/unit and/or counseling patient: Internal Medicine: Result - Labs CBC & Chem 7: 01/28/18 03:37 01/28/18 03:37 Labs: Short CBC 01/28/18 Range/Units 03:37 WBC 6.9 (4.3-11.1) K/mcL Hgb 7.3 L (12.9-16.9) g/dL Hct 23.8 L (37.5-50.1) % Plt Count 281 (140-400) K/mcL Neutrophils # 4.3 (1.6-8.9) K/mcL BMP 01/28/18 03:37 Sodium 134 L Potassium 4.1 Chloride 103 Carbon Dioxide 24 BUN 38 H Creatinine 1.83 H Glucose 159 H Calcium 8.6 - ABG Interpretation ABG results: PT/INR, D-dimer PT 13.8 Seconds (9.4-12.1) H 01/25/18 17:41 - Impressions Impressions Echocardiogram 01/26/18 15:18 Impressions: LVEF 50%. Normal LV chamber size, wall thickness and low normal function. Mild left ventricular diastolic dysfunction. Normal right ventricular structure and function. Unable to estimate RVSP due to lack of adequate TR jet. No significant valvular dysfunction. Left Ventricular Wall Motion: Rest Echo Findings All wall segments showed normal motion. Findings: Study Quality * Technically adequate exam. ECG Findings * Normal sinus rhythm. Left Ventricle * LVEF 50%. * Normal LV chamber size, wall thickness and low normal function. * Mild left ventricular diastolic dysfunction. Right Ventricle * Normal right ventricular structure and function. Left Atrium * Mildly dilated left atrium. Right Atrium * Normal right atrial size. Aortic Valve * Trileaflet aortic valve with normal function. * No aortic stenosis. * No aortic regurgitation. Mitral Valve * Normal mitral valve structure and function. * No mitral regurgitation. * No mitral stenosis. Tricuspid Valve * Normal tricuspid valve structure and function. * No tricuspid regurgitation. * Unable to estimate RVSP due to lack of adequate TR jet. Pulmonic Valve * Pulmonic valve not well visualized. * No pulmonic regurgitation. Aorta * Normally sized aortic root. Pericardium * The pericardium appears normal. IVC * Normal IVC dimensions and inspiratory collapse. Pulmonary Artery * Normal visualized portions of the main pulmonary artery. Consult Discharge Plan - Plan Referrals: NONE,PCP [Primary Care Provider] - <Tasha Shannon - Last Filed: 01/28/18 18:07> Hospitalist Progress Note - Encounter Date of Encounter: 01/28/18 - Exam Vitals: Temp Pulse Resp BP Pulse Ox 97.5 F L 76 17 116/63 97 01/28/18 16:47 01/28/18 16:47 01/28/18 16:47 01/28/18 16:47 01/28/18 16:47 - Assessment and Plan (1) Cervical stenosis of spinal canal Current Visit: Yes Status: Acute (2) PVD (peripheral vascular disease) Current Visit: Yes Status: Chronic (3) CAD (coronary artery disease) Current Visit: Yes Status: Chronic (4) Chronic renal disease, stage IV Current Visit: Yes Status: Chronic (5) 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 Current Visit: Yes Status: Chronic (6) DVT prophylaxis Current Visit: Yes Status: Acute (7) Microcytic anemia Current Visit: Yes Status: Acute - Time Spent with Patient Total time spent is greater than 50% in coordination of care (as documented) at patient's floor/unit and/or counseling patient: Internal Medicine: Result - Labs CBC & Chem 7: 01/28/18 12:10 01/28/18 03:37 Labs: Short CBC 01/28/18 01/28/18 Range/Units 03:37 12:10 WBC 6.9 10.0 (4.3-11.1) K/mcL Hgb 7.3 L 9.0 L D (12.9-16.9) g/dL Hct 23.8 L 29.9 L (37.5-50.1) % Plt Count 281 356 (140-400) K/mcL Neutrophils # 4.3 7.9 (1.6-8.9) K/mcL BMP 01/28/18 03:37 Sodium 134 L Potassium 4.1 Chloride 103 Carbon Dioxide 24 BUN 38 H Creatinine 1.83 H Glucose 159 H Calcium 8.6 Urine 01/28/18 Range/Units 17:30 Urine Color Yellow (Yellow) Urine Clarity Clear (Clear) Urine pH 5.5 (5.0-8.0) pH Units Ur Specific [place] 1.009 L (1.010-1.025) Urine Protein 30 H (Neg-Trace) mg/dL Urine Glucose (UA) 500 H (Normal) mg/dL - ABG Interpretation ABG results: PT/INR, D-dimer PT 13.8 Seconds (9.4-12.1) H 01/25/18 17:41 - Attending Attestation I examined this patient and my medical decision making was reviewed with the Medical Student. I agree with the documented findings, disposition and treatment plan as described except to the extent set forth below. We independently had [id number] contact with the patient. No acute events. Patient has upper extremity weakness about the same. Pain is controlled. Physical exam displays upper extremity weakness as before. VS reviewed. Labs show hemoglobin going from 9 on admission but 7.3 today. A repeat was back at 9 which could be lab error or dilutional. Creatinine shows gradual increase from 1.5 on admission now 1.8. Will need recheck in AM. Plavix held for procedure, likely Wednesday, 3 days. <Xavier Boone - Last Filed: 01/28/18 13:21> (2) CAD (coronary artery disease) Qualifiers: Coronary Disease-Associated Artery/Lesion type: [place] artery [place] vs. tra nsplanted heart: [place] heart Associated angina: without angina Qualified Code(s): I25.10 - Atherosclerotic heart disease of [place] coronary artery without angina pectoris <Tasha Shannon - Last Filed: 01/28/18 18:07> (3) CAD (coronary artery disease) Qualifiers: Coronary Disease-Associated Artery/Lesion type: [place] artery [place] vs. transplanted heart: [place] heart Associated angina: without angina Qualified Code(s): I25.10 - Atherosclerotic heart disease of [place] coronary artery without angina pectoris
[2018-01-28] MEDS: Insulin LISPRO 300 UNITS/3 ML VIAL SQ SCH ×4 (09:12→20:35)
[2018-01-28] MEDS: Aspirin Enteric Coated 81 MG Tablet PO SCH (09:15)
[2018-01-28] MEDS: Cyanocobalamin (B-12) 1,000 MCG TABLET PO SCH (09:15)
[2018-01-28] MEDS ORDERED: Ondansetron 4 MG/2 ML VIAL IVP ONE (09:54)
--- NOTE | 2018-01-28 11:25 | Cardiology Progress Note ---
Date of Encounter: 01/28/18 Time of Encounter: : Assessment and Plan (1) Preop cardiovascular exam Current Visit: Yes Status: Acute Admitted for severe cervical spinal stenosis with plan for anterior cervical spinal decompression. Follows with Dr. Argueta at [place] for cardiology. Hx of CAD with PCI reported in 2004. RCRI is 2 placing patient at moderate risk. He hasn't had an ischemic evaluation in quite some time and has known CAD. In anticipation of spinal surgery under general anesthesia, recommended ischemic evaluation with stress testing help with risk stratification. Stress test and TTE completed. Stress test study quality was fair. Gated EF = 40%. The left ventricle is dilated. LVEDV = 176 mL. Perfusion imaging was negative for ischemia. TTE LVEF 50%. Normal LV chamber size, wall thickness and low normal function. Mild LVDD. No significant valvular dysfunction. Pt is acceptable intermediate risk from cardiac standpoint to proceed with anterior cervical spine decompression. No further cardiac work-up warranted. HGB further decreased to 7.3 today--management per primary team. Cardiology signing off. Reconsult PRN. (2) CAD (coronary artery disease) Current Visit: Yes Status: Chronic Hx of CAD s/p PCI 2004. Continue ASA, Statin, BB. Qualifiers: Coronary Disease-Associated Artery/Lesion type: [place] artery [place] vs. transplanted heart: [place] heart Associated angina: without angina Qualified Code(s): I25.10 - Atherosclerotic heart disease of [place] coronary artery without angina pectoris Discussion w patient/family: The assessment and plan as outlined above was discussed with the patient and/or family members who expressed understanding and agreement. All questions were answered. Thank you for involving us in the care of your patient. Please call with any questions. I will discuss all the above with Dr. Bulmaro Hernández and make changes as necessary. Subjective Principal diagnosis: Pre op Interval history: Denies acute cardiac complaints. Objective Vital Signs Temp Pulse Resp BP Pulse Ox 01/28/18 06:31 98.3 F 72 18 164/79 100 01/28/18 03:43 98.1 F 66 16 147/71 98 01/27/18 23:55 98.3 F 91 15 152/70 97 01/27/18 20:11 98.7 F 83 16 153/72 99 01/27/18 19:34 99 01/27/18 15:56 99.1 F 90 15 165/75 100 Intake and Output 01/27/18 01/28/18 01/28/18 23:59 07:59 15:59 Other: # Voids 1 Weight 72.3 kg Blood Glucose* 162 123 Patient Weight 01/28/18 23:59 Weight 72.3 kg General: Conversant, No Apparent Distress HEENT: Atraumatic, Normocephaly, Mucus Membranes Moist Neck: No JVD, Normal carotid pulses Cardiac: Reg Rate and Rhythm, Normal S1 and S2, No Murmur Lungs: Normal Breath Sounds, No Wheeze, Rales, Rhonchi Neuro: Alert and responsive, No focal deficits noted Abdomen: Soft, Non-Tender Skin: No rashes noted on visualized skin Musculoskeletal: No Chest Wall Tenderness Extremities: No Clubbing, No Cyanosis, No Edema, Normal Pulses Results 01/28/18 03:37 01/28/18 03:37 Lab Results 01/28/18 01/28/18 03:37 03:37 WBC 6.9 Hgb 7.3 L Hct 23.8 L Plt Count 281 Sodium 134 L Potassium 4.1 Chloride 103 Carbon Dioxide 24 BUN 38 H Creatinine 1.83 H Glucose 159 H Calcium 8.6 Short CBC 01/28/18 Range/Units 03:37 WBC 6.9 (4.3-11.1) K/mcL Hgb 7.3 L (12.9-16.9) g/dL Hct 23.8 L (37.5-50.1) % Plt Count 281 (140-400) K/mcL Neutrophils # 4.3 (1.6-8.9) K/mcL BMP 01/28/18 Range/Units 03:37 Sodium 134 L (136-145) mEq/L Potassium 4.1 (3.5-5.1) mEq/L Chloride 103 (98-107) mEq/L Carbon Dioxide 24 (23-29) mEq/L BUN 38 H (8-23) mg/dL Creatinine 1.83 H (0.70-1.30) mg/dL Glucose 159 H (70-105) mg/dL Calcium 8.6 (8.6-10.3) mg/dL Active Medications Acetaminophen (Tylenol) 650 mg PO Q6HR PRN PRN Reason: Mild pain 1-3 Stop: 07/27/18 17:29 Aspirin (Aspirin Ec) 81 mg PO DAILY [facility] Stop: 07/27/18 22:31 Last Admin: 01/28/18 09:15 Dose: 81 mg Cyanocobalamin (Vitamin B12) 1,000 mcg PO DAILY [facility] Stop: 07/28/18 09:01 Last Admin: 01/28/18 09:15 Dose: 1,000 mcg Dextrose/Water (Dextrose 50% (Syg)) 25 ml IVP AD PRN PRN Reason: Hypoglycemia Stop: 07/27/18 17:58 Ferrous Sulfate (Ferrous Sulfate) 325 mg PO BIDWM [facility] Stop: 07/28/18 08:01 Last Admin: 01/28/18 09:16 Dose: 325 mg Glucagon (Glucagen) 1 mg IM ONCE PRN PRN Reason: Hypoglycemia Stop: 07/27/18 17:58 Glucose (Gluctose) 15 gm PO ONCE PRN PRN Reason: Hypoglycemia Stop: 07/27/18 17:58 Glucose (Gluctose) 30 gm PO ONCE PRN PRN Reason: Hypoglycemia Stop: 07/27/18 17:58 Heparin Sodium (Porcine) (Heparin) 5,000 unit SQ Q12HCO [facility] Stop: 07/27/18 18:01 Last Admin: 01/28/18 05:26 Dose: 5,000 unit Hydralazine HCl (Hydralazine) 10 mg IVP Q6HR PRN PRN Reason: SEE COMMENTS Stop: 07/27/18 17:28 Dextrose (Dextrose 5%) 1,000 mls @ 100 mls/hr IVC .Q10H PRN PRN Reason: HYPOGLYCEMIA Stop: 07/27/18 17:58 Insulin Detemir (Levemir) 20 unit SQ HS [facility] Stop: 07/27/18 21:01 Last Admin: 01/27/18 20:22 Dose: 20 unit Insulin Human Lispro (Humalog) 0 units SQ HS [facility]; Protocol Stop: 07/27/18 21:01 Last Admin: 01/27/18 21:53 Dose: Not Given Insulin Human Lispro (Humalog) 0 units SQ TIDWM [facility]; Protocol Stop: 07/28/18 08:01 Last Admin: 01/28/18 09:12 Dose: Not Given Losartan Potassium (Cozaar) 50 mg PO DAILY [facility]; Protocol Stop: 07/28/18 09:01 Last Admin: 11/21/18 09:20 Dose: 50 mg Lovastatin (Mevacor) 40 mg PO HS [facility] Stop: 07/28/18 21:01 Last Admin: 01/27/18 20:21 Dose: 40 mg Metoprolol Tartrate (Lopressor) 12.5 mg PO BID [facility] Stop: 07/27/18 21:01 Last Admin: 01/28/18 09:15 Dose: 12.5 mg Ondansetron HCl (Zofran) 4 mg IVP Q8HR PRN; Protocol PRN Reason: Nausea And Vomiting Stop: 07/27/18 17:28 Oxycodone HCl (Oxycodone Oral Conc) 5 mg SL Q6HR PRN; Protocol PRN Reason: Severe pain 7-10 Stop: 07/27/18 17:29 Last Admin: 01/28/18 05:50 Dose: 5 mg Pharmacy Profile Note (Patient Taking Own Medication) 1 each PO DAILY [facility] Stop: 07/28/18 09:01 Last Admin: 01/28/18 09:16 Dose: Not Given Tramadol HCl (Ultram) 50 mg PO TID PRN PRN Reason: Moderate pain 4-6 Stop: 07/27/18 17:29 Last Admin: 01/25/18 21:25 Dose: 50 mg - Imaging and Cardiology Stress Test: report reviewed Echo: report reviewed Consult Discharge Plan - Plan Referrals: NONE,PCP [Primary Care Provider] -
[2018-01-28 16:45] LABS: Basophils % 0.3 %; Eosinophils # 0.1 K/mcL (0.0-0.6); Eosinophils % 0.8 %; Hematocrit 29.9 % (37.5-50.1); Immature Granulocytes % 0.6 % (0-4); Lymphocytes # 0.9 K/mcL (0.6-4.6); Mean Corpuscular HGB Conc 30.1 g/dL (31.6-35.5); Mean Corpuscular Hemoglobin 25.3 pg (28.0-33.3); Monocytes # 1.1 K/mcL (0.0-1.3); Monocytes % 10.7 %; Neutrophils # 7.9 K/mcL (1.6-8.9); Platelet Count 356 K/mcL (140-400); Red Blood Count 3.56 M/mcL (4.19-5.50); Segmented Neutrophils % 78.6 %
[2018-01-28 18:01] LABS: Bilirubin,Urine Negative (Negative); Blood,Urine Small (Negative); Clarity,Urine Clear (Clear); Color,Urine Yellow (Yellow); Glucose,Urine (UA) 500 mg/dL (Normal); Ketones,Urine Negative (Negative); Leukocyte Esterase,Urine Negative (Negative); Nitrite,Urine Negative (Negative); PH,Urine 5.5 pH Units (5.0-8.0); Protein,Urine 30 mg/dL (Neg-Trace); Specific Gravity,Urine 1.009 (1.010-1.025); Urobilinogen,Urine Normal (Normal)
[2018-01-28 18:02] LABS: Bacteria,Urine None Seen per hpf (None-Few); Hyaline Casts,Urine None Seen per lpf (None-Few); Squamous Epithelial Cell,Urine Few per lpf (None-Few); WBC,Urine 0-3 per hpf (0-3)
[2018-01-28 18:50] LABS: Sodium, Urine 72.3 mEq/L
[2018-01-28] MEDS: Insulin DETEMIR 100 UNIT/ML X5UNITS SQ SCH (20:32)
[2018-01-29] MEDS: *HR* Heparin 5,000 UNIT/ML VIAL SQ SCH ×2 (04:54→18:22)
[2018-01-29] MEDS: OXYCODONE Oral CONC 10 MG/0.5 ML ORAL.SYG SL PRN ×2 (04:55→21:46)
[2018-01-29 05:22] LABS: Calcium 8.9 mg/dL (8.6-10.3); Potassium 4.2 mEq/L (3.5-5.1)
[2018-01-29] MEDS: Insulin LISPRO 300 UNITS/3 ML VIAL SQ SCH ×4 (07:34→21:47)
[2018-01-29 08:08] LABS: Hematocrit 27.8 % (37.5-50.1); Hemoglobin 8.5 g/dL (12.9-16.9)
[2018-01-29] MEDS: Aspirin Enteric Coated 81 MG Tablet PO SCH (08:40)
[2018-01-29] MEDS: Cyanocobalamin (B-12) 1,000 MCG TABLET PO SCH (08:41)
--- NOTE | 2018-01-29 09:29 | Internal Med Progress Note ---
<Phil Cheek S - Last Filed: 01/29/18 11:53> Hospitalist Progress Note - Encounter Date of Encounter: 01/29/18 Time of Encounter: 09:57 - Subjective Interval History: Mr. Morales is a 62yo male with PMH of T2DM, cardiac stent on DAPT, CAD, HTN, HDL, and stage 4 kidney disease. He was admitted for symptomatic bilateral upper extr emity pain and weakness. He was found to have significant spinal stenosis on prior MRI. He states that he had about 2 mos of progressive weakness. He was unable to bend his elbows or make a fist. He is scheduled to undergo anterior cervical decompression with fusion of C4-C6 either later this week or early next week with Dr. Flaherty after plavix washout. He is seen at bedside this morning and has no acute complaints or concerns. He still has complaints of not being able to properly use his UE and some weakness. He denies any active chest pain, SOB, N/V/D, abd pain. He does have numbness/tingling in the B/L UE. Denies any B&B dysfxn or loss of bladder control. - Exam Vitals: Temp Pulse Resp BP Pulse Ox 98.1 F 74 15 144/72 97 01/29/18 06:45 01/29/18 06:45 01/29/18 06:45 01/29/18 06:45 01/29/18 06:45 Exam: General: 62 y/o male awake, alert and in NAD sitting conformably in chair H.E.E.N.T: Sclera anicteric, mucus membranes moist, PERRL Cardiovascular: RRR, normal S1/S2, no murmurs, rubs or gallops Respiratory: LCTA bilaterally, no wheezing, crackles or rhonchi Abdomen: soft, non-distended, non-tender, no guarding, bowel sounds present and normal throughout Extremities: no cyanosis, no clubbing, no edema in lower extremities, + 2 edema in hands, worse on left than right Neuro: continued weakness and significant reduction in ROM in bilateral upper extremities, no other apparent focal deficits Psych: Behavior and affect appropriate for situation - Assessment and Plan (1) Cervical stenosis of spinal canal Current Visit: Yes Status: Acute Assessment and Plan: Pt presented with worsening bilateral UE pain and weakness - followed by Dr. Stubbs, spine surgeon MRI showed significant cervical spinal stenosis (01/12) Plan: - NPO Wednesday at midnight - plan to go to OR with Dr. Stubbs on Wednesday morning anterior cervical decompression with fusion of C4-6 - continue to hold Plavix Day 4 without anti-platelets - pain control - dispo: awaiting surgery (2) CAD (coronary artery disease) Current Visit: Yes Status: Chronic Assessment and Plan: Pt has an extensive hx of CAD - s/p stents in 2004 and 2006 - is on DAPT with ASA/plavix Pt evaluated by cardiology for presurgical risk assessment - myocardial perfusion scan for preoperative cardiac clearnace was done 01/28 - gated EF of 40%, dilated LV with LVEDV of 176 mL, small, moderate intensity apical lateral defect with normal wall motion suggestive of artifact - perfusion imaging was negative for ischemia ECHO on 01/26 - LVEF 50% - diastolic dysfxn - no valvular dysfxn Plan: - continue to hold antiplatelets day 4 no DAPT in preparation for sx - continue statin, ASA (3) Preop cardiovascular exam Current Visit: Yes Status: Acute Assessment and Plan: As per cardiology - RCRI is 2, moderate risk for operative events - as per cardio, pt is acceptable intermediate risk from cardiac standpoint to proceed with anterior cervical spine decompressio - cardiology has signed off (4) PVD (peripheral vascular disease) Current Visit: No Status: Chronic Assessment and Plan: S/p stents 2004, 2006 - chronic - con't statins (5) Chronic renal disease, stage IV Current Visit: Yes Status: Chronic Assessment and Plan: Admission creatinine 1.57 - increased to 1.72 ---> 1.83 ---> this morning 1.73 Retroperitoneal US unremarkable Plan: - avoid nephrotoxic agents - continue to monitor BMP - urine sodium pending (6) 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 (9) Constipation Current Visit: Yes Status: Acute Assessment and Plan: senna plus - Time Spent with Patient Total time spent is greater than 50% in coordination of care (as documented) at patient's floor/unit and/or counseling patient: Internal Medicine: Result - Labs CBC & Chem 7: 01/29/18 07:59 01/29/18 04:41 Labs: Short CBC 01/28/18 01/29/18 Range/Units 12:10 07:59 WBC 10.0 (4.3-11.1) K/mcL Hgb 9.0 L D 8.5 L (12.9-16.9) g/dL Hct 29.9 L 27.8 L (37.5-50.1) % Plt Count 356 (140-400) K/mcL Neutrophils # 7.9 (1.6-8.9) K/mcL BMP 01/28/18 01/29/18 03:37 04:41 Sodium 134 L 134 L Potassium 4.1 4.2 Chloride 103 101 Carbon Dioxide 24 24 BUN 38 H 37 H Creatinine 1.83 H 1.73 H Glucose 159 H 118 H Calcium 8.6 8.9 Urine 01/28/18 Range/Units 17:30 Urine Color Yellow (Yellow) Urine Clarity Clear (Clear) Urine pH 5.5 (5.0-8.0) pH Units Ur Specific [place] 1.009 L (1.010-1.025) Urine Protein 30 H (Neg-Trace) mg/dL Urine Glucose (UA) 500 H (Normal) mg/dL - ABG Interpretation ABG results: PT/INR, D-dimer PT 13.8 Seconds (9.4-12.1) H 01/25/18 17:41 - Impressions Impressions Retroperitoneum Ultrasound 01/28/18 18:30 IMPRESSION: Mild increased echogenicity of the kidneys. Otherwise unremarkable renal ultrasound. No evidence of hydronephrosis. Patient attempted to void but was unable to. Clinical correlation for bladder outlet obstruction recommended. D/ / Tabatha Bahena MD / Tabatha Bahena MD Interpreting Provider: Tabatha Bahena MD Consult Discharge Plan - Plan Referrals: NONE,PCP [Primary Care Provider] - <Tasha Shannon - Last Filed: 01/29/18 15:37> Hospitalist Progress Note - Encounter Date of Encounter: 01/29/18 - Exam Vitals: Temp Pulse Resp BP Pulse Ox 98.4 F 78 17 124/74 92 01/29/18 12:28 01/29/18 12:28 01/29/18 12:28 01/29/18 12:28 01/29/18 12:28 - Assessment and Plan (1) Cervical stenosis of spinal canal Current Visit: Yes Status: Acute 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 Current Visit: Yes Status: Chronic (6) DVT prophylaxis Current Visit: Yes Status: Acute (7) Microcytic anemia Current Visit: Yes Status: Acute - Time Spent with Patient Total time spent is greater than 50% in coordination of care (as documented) at patient's floor/unit and/or counseling patient: Internal Medicine: Result - Labs CBC & Chem 7: 01/29/18 07:59 01/29/18 04:41 Labs: Short CBC 01/28/18 01/29/18 Range/Units 12:10 07:59 WBC 10.0 (4.3-11.1) K/mcL Hgb 9.0 L D 8.5 L (12.9-16.9) g/dL Hct 29.9 L 27.8 L (37.5-50.1) % Plt Count 356 (140-400) K/mcL Neutrophils # 7.9 (1.6-8.9) K/mcL BMP 01/29/18 04:41 Sodium 134 L Potassium 4.2 Chloride 101 Carbon Dioxide 24 BUN 37 H Creatinine 1.73 H Glucose 118 H Calcium 8.9 Urine 01/28/18 Range/Units 17:30 Urine Color Yellow (Yellow) Urine Clarity Clear (Clear) Urine pH 5.5 (5.0-8.0) pH Units Ur Specific [place] 1.009 L (1.010-1.025) Urine Protein 30 H (Neg-Trace) mg/dL Urine Glucose (UA) 500 H (Normal) mg/dL - ABG Interpretation ABG results: PT/INR, D-dimer PT 13.8 Seconds (9.4-12.1) H 01/25/18 17:41 - Impressions Impressions Retroperitoneum Ultrasound 01/28/18 18:30 IMPRESSION: Mild increased echogenicity of the kidneys. Otherwise unremarkable renal ultrasound. No evidence of hydronephrosis. Patient attempted to void but was unable to. Clinical correlation for bladder outlet obstruction recommended. D/ / Tabatha Bahena MD / Tabatha Bahena MD Interpreting Provider: Tabatha Bahena MD - Attending Attestation I have examined this patient and my medical decision-making was reviewed with the Resident Physician. I agree with the documented findings, disposition and treatment plan as described except to the extent set forth below. <Phil Cheek - Last Filed: 01/29/18 11:53> (2) CAD (coronary artery disease) Qualifiers: Coronary Disease-Associated Artery/Lesion type: [place] artery [place] vs. transplanted heart: [place] heart Associated angina: without angina Qualified Code(s): I25.10 - Atherosclerotic heart disease of [place] coronary artery without angina pectoris (9) Constipation Qualifiers: Constipation type: unspecified constipation type Qualified Code(s): K59.00 - Constipation, unspecified <Shiva,Kash Rheem - Last Filed: 01/29/18 15:37> (3) CAD (coronary artery disease) Qualifiers: Coronary Disease-Associated Artery/Lesion type: [place] artery [place] vs. transplanted heart: [place] heart Associated angina: without angina Qualified Code(s): I25.10 - Atherosclerotic heart disease of [place] coronary artery without angina pectoris
[2018-01-29] MEDS: Sennosides/Docusate Sodium TABLET PO SCH (12:12)
[2018-01-29] MEDS ORDERED: Insulin DETEMIR 100 UNIT/ML X5UNITS SQ ONE (15:34)
[2018-01-29] MEDS ORDERED: Artificial Tears SOLN 15 ML BOTTLE BOTH EYES PRN (18:28)
[2018-01-29] MEDS: Insulin DETEMIR 100 UNIT/ML X5UNITS SQ SCH (21:47)
[2018-01-30] MEDS: traMADol 50 MG TABLET PO PRN ×2 (05:54→21:59)
[2018-01-30] MEDS: *HR* Heparin 5,000 UNIT/ML VIAL SQ SCH ×2 (05:54→17:23)
[2018-01-30] MEDS: Insulin LISPRO 300 UNITS/3 ML VIAL SQ SCH ×4 (07:44→20:13)
[2018-01-30] MEDS: Cyanocobalamin (B-12) 1,000 MCG TABLET PO SCH (07:49)
[2018-01-30] MEDS: Sennosides/Docusate Sodium TABLET PO SCH (07:49)
[2018-01-30] MEDS: Aspirin Enteric Coated 81 MG Tablet PO SCH (07:49)
--- NOTE | 2018-01-30 09:31 | Internal Med Progress Note ---
<HamPhil S - Last Filed: 01/30/18 09:28> Hospitalist Progress Note - Encounter Date of Encounter: 01/30/18 Time of Encounter: 09:28 - Subjective Interval History: Mr. Morales is a 62yo male with PMH of T2DM, cardiac stent on DAPT, CAD, HTN, HDL, and stage 4 kidney disease. He was admitted for symptomatic bilateral upper extr emity pain and weakness. He was found to have significant spinal stenosis on prior MRI. He states that he had about 2 mos of progressive weakness. He was unable to bend his elbows or make a fist. He is scheduled to undergo anterior cervical decompression with fusion of C4-C6 either later this week or early next week with Dr. Flaherty after plavix washout. He is seen at bedside this morning and has no acute complaints or concerns. Pain is well controlled. He still has complaints of not being able to properly use his UE and some weakness. He denies any active chest pain, SOB, N/V/D, abd pain. He does have numbness/tingling in the B/L UE. Denies any B&B dysfxn or loss of bladder control. - Exam Vitals: Temp Pulse Resp BP Pulse Ox 98.0 F 78 18 147/74 97 01/30/18 06:26 01/30/18 06:26 01/30/18 06:26 01/30/18 06:26 01/30/18 06:26 Exam: General: 62 y/o male awake, alert and in NAD sitting conformably in chair , AOx3 H.E.E.N.T: Sclera anicteric, mucus membranes moist, PERRL Cardiovascular: RRR, normal S1/S2, no murmurs, rubs or gallops Respiratory: LCTA bilaterally, no wheezing, crackles or rhonchi Abdomen: soft, non-distended, non-tender, no guarding, bowel sounds present and normal throughout Extremities: no cyanosis, no clubbing, no edema in lower extremities, + 2 edema in hands, worse on left than right - has improved since yesterday Neuro: continued weakness and significant reduction in ROM in bilateral upper extremities, no other apparent focal deficits Psych: mood and affect appropriate - Assessment and Plan (1) Cervical stenosis of spinal canal Current Visit: Yes Status: Acute Assessment and Plan: Pt presented with worsening bilateral UE pain and weakness - followed by Dr. Stubbs, spine surgeon MRI showed significant cervical spinal stenosis (01/12) Plan: - NPO Wednesday at midnight - plan to go to OR with Dr. Stubbs on Wednesday morning anterior cervical decompression with fusion of C4-6 - continue to hold Plavix Day 5 without anti-platelets - pain control - dispo: awaiting surgery (2) CAD (coronary artery disease) Current Visit: Yes Status: Chronic Assessment and Plan: Pt has an extensive hx of CAD - s/p stents in 2004 and 2006 - is on DAPT with ASA/plavix Pt evaluated by cardiology for presurgical risk assessment - myocardial perfusion scan for preoperative cardiac clearnace was done 01/28 - gated EF of 40%, dilated LV with LVEDV of 176 mL, small, moderate intensity apical lateral defect with normal wall motion suggestive of artifact - perfusion imaging was negative for ischemia ECHO on 01/26 - LVEF 50% - diastolic dysfxn - no valvular dysfxn Plan: - continue to hold antiplatelets day 5 no DAPT in preparation for sx - continue statin, ASA (3) Preop cardiovascular exam Current Visit: Yes Status: Acute Assessment and Plan: As per cardiology - RCRI is 2, moderate risk for operative events - as per cardio, pt is acceptable intermediate risk from cardiac standpoint to proceed with anterior cervical spine decompressio - cardiology has signed off (4) PVD (peripheral vascular disease) Current Visit: No Status: Chronic Assessment and Plan: S/p stents 2004, 2006 - chronic - con't statins (5) Chronic renal disease, stage IV Current Visit: Yes Status: Chronic Assessment and Plan: Admission creatinine 1.57 - increased to 1.72 ---> 1.83 ---> 01/29: 1.73 Retroperitoneal US unremarkable Plan: - avoid nephrotoxic agents - continue to monitor BMP (6) 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 (9) Constipation Current Visit: Yes Status: Acute Assessment and Plan: senna plus - Time Spent with Patient Total time spent is greater than 50% in coordination of care (as documented) at patient's floor/unit and/or counseling patient: Internal Medicine: Result - Labs CBC & Chem 7: 01/29/18 07:59 01/29/18 04:41 - ABG Interpretation ABG results: PT/INR, D-dimer PT 13.8 Seconds (9.4-12.1) H 01/25/18 17:41 Consult Discharge Plan - Plan Referrals: NONE,PCP [Primary Care Provider] - <Tasha Shannon - Last Filed: 01/30/18 16:58> Hospitalist Progress Note - Encounter Date of Encounter: 01/30/18 - Exam Vitals: Temp Pulse Resp BP Pulse Ox 98.5 F 83 14 131/61 97 01/30/18 16:41 01/30/18 16:41 01/30/18 16:41 01/30/18 16:41 01/30/18 16:41 - Assessment and Plan (1) Cervical stenosis of spinal canal Current Visit: Yes Status: Acute 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 I agree with the documented findings, disposition and treatment plan as described except to the extent set forth below. <Phil Cheek - Last Filed: 01/30/18 09:28> (2) CAD (coronary artery disease) Qualifiers: Coronary Disease-Associated Artery/Lesion type: [place] artery [place] vs. transplanted heart: [place] heart Associated angina: without angina Qualified Code(s): I25.10 - Atherosclerotic heart disease of [place] coronary artery without angina pectoris (9) Constipation Qualifiers: Constipation type: unspecified constipation type Qualified Code(s): K59.00 - Constipation, unspecified <Tasha Shannon - Last Filed: 01/30/18 16:58> (3) CAD (coronary artery disease) Qualifiers: Coronary Disease-Associated Artery/Lesion type: [place] artery [place] vs. transplanted heart: [place] heart Associated angina: without angina Qualified Code(s): I25.10 - Atherosclerotic heart disease of [place] coronary artery withou t angina pectoris
[2018-01-30] MEDS: Insulin DETEMIR 100 UNIT/ML X5UNITS SQ SCH ×2 (09:38→20:12)
[2018-01-30] MEDS: OXYCODONE Oral CONC 10 MG/0.5 ML ORAL.SYG SL PRN (14:29)
[2018-01-31] MEDS: *HR* Heparin 5,000 UNIT/ML VIAL SQ SCH ×2 (05:15→21:00)
[2018-01-31 06:24] LABS: Hematocrit 23.7 % (37.5-50.1); Hemoglobin 7.5 g/dL (12.9-16.9)
[2018-01-31 06:28] LABS: INR 1.1; Prothrombin Time 12.5 Seconds (9.4-12.1)
[2018-01-31 06:42] LABS: Potassium 4.5 mEq/L (3.5-5.1)
[2018-01-31] MEDS: Cyanocobalamin (B-12) 1,000 MCG TABLET PO SCH (07:58)
[2018-01-31] MEDS: Insulin LISPRO 300 UNITS/3 ML VIAL SQ SCH ×3 (08:02→21:00)
[2018-01-31] MEDS: Aspirin Enteric Coated 81 MG Tablet PO SCH (08:03)
[2018-01-31] MEDS: Sennosides/Docusate Sodium TABLET PO SCH (08:03)
--- NOTE | 2018-01-31 08:16 | Internal Med Progress Note ---
Hospitalist Progress Note - Encounter Date of Encounter: 01/31/18 Time of Encounter: 10:00 - Subjective Interval History: No complaints, no acute events. - Exam Vitals: Temp Pulse Resp BP Pulse Ox 98.2 F 81 17 162/80 97 01/31/18 07:04 01/31/18 07:04 01/31/18 07:04 01/31/18 07:04 01/31/18 07:04 Exam: General: 62 y/o male awake, alert and in NAD sitting conformably in chair , AOx3 H.E.E.N.T: Sclera anicteric, mucus membranes moist, PERRL Cardiovascular: RRR, normal S1/S2, no murmurs, rubs or gallops Respiratory: LCTA bilaterally, no wheezing, crackles or rhonchi Abdomen: soft, non-distended, non-tender, no guarding, bowel sounds present and normal throughout Extremities: no cyanosis, no clubbing, no edema in lower extremities, + 2 edema in hands, worse on left than right Neuro: continued weakness and significant reduction in ROM in bilateral upper extremities, no other apparent focal deficits Psych: mood and affect appropriate - Assessment and Plan (1) Cervical stenosis of spinal canal Current Visit: Yes Status: Acute Assessment and Plan: Plan for surgery today Plavix has been held prior to surgery Patient will receive one unit PRBC prior to procedure as hemoglobin today is 7.5. 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 Current Visit: Yes Status: Chronic (6) DVT prophylaxis Current Visit: Yes Status: Acute (7) Microcytic anemia Current Visit: Yes Status: Acute - Time Spent with Patient Total time spent is greater than 50% in coordination of care (as documented) at patient's floor/unit and/or counseling patient: Internal Medicine: Result - Labs CBC & Chem 7: 01/31/18 05:49 01/31/18 05:49 Labs: Short CBC 01/31/18 Range/Units 05:49 Hgb 7.5 L (12.9-16.9) g/dL Hct 23.7 L (37.5-50.1) % BMP 01/31/18 05:49 Sodium 136 Potassium 4.5 Chloride 100 Carbon Dioxide 28 BUN 38 H Creatinine 1.68 H Glucose 140 H Calcium 9.0 - ABG Interpretation ABG results: PT/INR, D-dimer PT 12.5 Seconds (9.4-12.1) H 01/31/18 05:49 Consult Discharge Plan - Plan Referrals: NONE,PCP [Primary Care Provider] - (3) CAD (coronary artery disease) Qualifiers: Coronary Disease-Associated Artery/Lesion type: [place] artery [place] vs. transplanted heart: [place] heart Associated angina: without angina Qualified Code(s): I25.10 - Atherosclerotic heart disease of [place] coronary artery without angina pectoris
[2018-01-31] MEDS: OXYCODONE Oral CONC 10 MG/0.5 ML ORAL.SYG SL PRN (10:56)
[2018-01-31] MEDS ORDERED: 0.9 % Sodium Chloride 250 ML IVC SCH (11:30)
[2018-01-31] MEDS ORDERED: Ondansetron 4 MG/2 ML VIAL ONE (13:22)
[2018-01-31] MEDS ORDERED: *HR* Succinylcholine 200 MG/10 ML VIAL IVP ONE (13:22)
[2018-01-31] MEDS ORDERED: Dexamethasone 4 MG/ML VIAL ONE (13:22)
[2018-01-31] MEDS ORDERED: Lidocaine -MPF 4% 5 ML AMPUL ONE (13:22)
[2018-01-31] MEDS ORDERED: Lidocaine -MPF 2% 2 ML VIAL ONE (13:22)
[2018-01-31] MEDS ORDERED: *HR* Propofol 200 MG/20 ML VIAL IVP ONE (13:23)
[2018-01-31] MEDS ORDERED: *HR* FentaNYL (PF) 100 MCG/2 ML VIAL ONE (13:23)
--- NOTE | 2018-01-31 14:25 | Anesthesia Evaluation PreOp ---
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: Other (Anmxiety/Depression, Cervical stenosis) Other Medical History: Renal (Stage IV CRD, stones), Diabetes Type II, Other (Microcytic Anemia) Anesthesia History: No Prior Anesthetic Complications, Past Anesthesia (Cardiac stents) Alcohol Use: none Drug use: none Medications and Allergies Aspirin [Adult Aspirin] 81 mg PO DAILY 01/25/18 [History] Clopidogrel [Plavix] 75 mg PO DAILY 01/25/18 [History] Cyanocobalamin (Vitamin B-12) [Vitamin B12] 1,000 mcg PO DAILY 01/25/18 [History] Ferrous Sulfate [Iron] 325 mg PO BID 01/25/18 [History] Insulin ASPART [NovoLOG] See Protocol SQ TIDWM 01/25/18 [History] Insulin Glargine [Lantus] 18 - 22 units SQ DAILY 01/25/18 [History] Losartan [Cozaar] 50 mg PO DAILY 01/25/18 [History] Lovastatin 40 mg PO DAILY 01/25/18 [History] Metoprolol [Lopressor] 12.5 mg PO BID 01/25/18 [History] [place]-3/Dha/Epa/Fish Oil [Fish Oil 1,000 mg Softgel] 1,000 mg PO DAILY 01/25/18 [History] Diclofenac Sodium [Voltaren] 1 applic TP BID PRN 01/26/18 [History] Allergy/AdvReac Type Severity Reaction Status Date / Time No Known Allergies Allergy Verified 01/26/18 14:50 - Meds/Allergy Pre-op Review Medications Reviewed: Yes Allergies Reviewed: Yes Beta Blockers on Current Med List: Yes If Beta Blockers taken, Date/Time (Last Dose taken): 07:58 01/31/18 Anesthesia Results - Labs 01/31/18 05:49 01/31/18 05:49 Echocardiogram Name: Logan Morales Date of Study: 01/26/2018 EV/EV echocardiogram Impressions: LVEF 50%. Normal LV chamber size, wall thickness and low normal function. Mild left ventricular diastolic dysfunction. Normal right ventricular structure and function. Unable to estimate RVSP due to lack of adequate TR jet. No significant valvular dysfunction. Stress 01/28/2018 EF-40% No ischemia - Imaging EKG: report reviewed (SINUS RHYTHM LEFT VENTRICULAR HYPERTROPHY AND ST-T CHANGE Electronically Signed On 01-27-2018 8:27:42 EST by Kavon Boss) Anesthesia Exam Vital Signs/O2 Sat, Most Current Temp Pulse Resp BP Pulse Ox 98.5 F 73 16 151/65 97 01/31/18 11:26 01/31/18 11:26 01/31/18 11:01/31/18 11:01/31/18 11:26 NPO (# of Hours): > 8 hrs Pain Scale: 0 Pain Scale Used: Numeric (1 - 10) - HEENT Pupil (Motor): Pupils equal, EOMI Mallampati: III (TMJ d) Teeth: Poor dentition Oral Opening: Less than or equal to 3 - PLASMA TABLE OPERATOR LOC: Oriented PLASMA TABLE OPERATOR Motor: Normal RUE, Normal LUE, Normal RLE, Normal LLE, Normal Face PLASMA TABLE OPERATOR Sensory: Normal: RUE, LUE, RLE, LLE, Face - Cardiac Rhythm: Regular Murmur: None JVD: No Carotid Bruit: No - Pulmonary Breath Sounds: bilateral Clear Respiratory Effort: Symmetrical Anesthesia Assess/Plan ASA Score: 3 Level of consciousness: Cooperative Anesthetic Plan: General Reason for No Neuroaxial/Regional Block: Patient refusal Autologous Blood: Yes Monitoring Plan: Standard Monitors Recovery Plan: PACU
[2018-01-31] MEDS ORDERED: *HR* Remifentanil 1 MG VIAL IVP ONE (14:32)
[2018-01-31] MEDS ORDERED: Propofol 500 MG/50 ML INFUS..BTL ONE ×2 (14:54→16:24)
[2018-01-31] MEDS ORDERED: Bacitracin 50,000 UNIT, Polymyxin B Sulfate 500,000 UNIT, Sodium Chloride IRRigation 1,... IR ONE (15:00)
[2018-01-31] MEDS ORDERED: *HR* PHENYLEPHRINE 1,000 MCG/10 ML SYRINGE IVP ONE (15:38)
[2018-01-31] MEDS ORDERED: EPHEDrine 50 MG/ML VIAL ONE (16:02)
[2018-01-31] MEDS ORDERED: *HR* Meperidine 25 MG/ML SYRINGE IVP PRN (16:28)
[2018-01-31] MEDS ORDERED: *HR* Promethazine 25 MG/ML VIAL IVP PRN (16:28)
[2018-01-31] MEDS ORDERED: *HR* OxyCODONE Immed Rel 5 MG TABLET PO PRN ×2 (16:28→19:01)
[2018-01-31] MEDS ORDERED: *HR* HYDROmorphone (PF) 1 MG/ML SYRINGE IVP PRN (16:28)
--- NOTE | 2018-01-31 17:54 | Orthopedic Operative Note ---
Date of procedure: 01/31/18 Pre-op diagnosis: Cervical stenosis, cervical myelopathy, arm weakness Post-op diagnosis: same Operation/Findings: Anterior cervical decompression fusion C4-C6: Anterior cervical decompression and fusion C5-C7:The patient was brought to the operating room and placed supine on the operating room table. Successful general endotracheal anesthesia intubation was performed. Neurophysiologic monitoring personnel placed leads on the upper and lower extremities as well as the cranium for EMG monitoring purposes. Appropriate baseline potentials were noted by the neurophysiologic monitoring staff. Vivas catheter was placed prior to positioning. Compression boots and deep vein thrombosis prophylaxis were also placed all bony prominences including the ulnar nerve near the medial epicondyles of the elbows were appropriately padded. Mild traction was placed on the bilateral shoulders and taped into place. Preoperative antibiotics were administered. The area from the mandible bilaterally to the upper thoraces was prepped and draped in the usual sterile fashion. A transverse incision was made at the level of the cricoid cartilage which is approximately 3 cm in length and extended from the midline of the cervical spine laterally towards the sternocleidomastoid muscle on the left. We then performed standard medial approach to the carotid sheath. Sponges were used to tease the fascial medial to the sternocleidomastoid muscle while carefully controlling and palpating the carotid artery. Using careful dissection we were able to get to the level of the anterior vertebral bodies and longus coli muscles. The spinal needle was placed at the appropriate level, and intraoperative radiograph was obtained which was a cervical spine lateral radiograph. The needle and radiograph confirmed we were at the correct operative level. We further exposed this level by using Bovie cautery under the medial edge of the longus colli muscles to allow them to be retracted approximately 2 mm laterally on each side. An 11 blade was used to perform anterior discectomy at the appropriate level after an initial annulotomy of the anterior longitudinal ligament and annulus was performed. Further disc material was removed with pituitary Rongeurs. Subsequently, Synthes pins were placed at the C6 and C7 vertebral bodies respectively to provide distraction. We then used a Trimline cervical retractor which was placed in both medial and lateral a s well as inferior superior direction to allow full visualization of the appropriate disc and vertebral bodies. The Leica microscope was brought to the field and the remainder of the procedure was performed under the guidance of this microscope. Using pituitary rongeurs and small curettes, various micro- instruments, a full discectomy was performed at the appropriate C6-C7 level. The posterior longitudinal ligament was encountered and appeared partially calcified. A portion of this ligament was removed. After complete and thorough discectomy and removal of spondylitic material was performed the endplates of the vertebral bodies were prepared with a bur until allow bleeding of cancellous bone. A 8mm trial graft was evaluated and appeared to fit quite well within the excised C6-7 disc space. A cortico-cancellous allograft of 8 mm was utilized, carefully tapped into place within the excised disc space with the aid of a bone tamp. It was seated approximately 2 mm from the anterior edge of the cortex of the adjacent vertebral bodies. We then turned our attention to the C5-6 level where a similar series of procedures was performed including discectomy, removal of spondylitic material, end plate preparation, and trial graftig. An 8mm trial fit well within the C5-6 disc space. A 8 mm allograft was then placed at C5-6. A cervical plate was then placed on the anterior aspect of the C5, C6, and C7 vertebral bodies. The plate was placed in the midline position after drilling six 13 mm self tapping screws and inserting them. They were locked in place using standard Venture plate maneuvers. At this point a lateral radiograph of the cervical spine was obtained and showed satisfactory position of the graft and plate. The wound was copiously irrigated and bleeders encountered were cauterized using Bovie cautery. Platysma was closed with interrupted 2-0 Vicryl sutures. Running 3-0 Monocryl suture was used for skin closure. Sterile dressing was placed over the neck wound. A cervical collar was placed. The patient was transferred to a hospital bed and extubated. The patient was noted to be fully motor and sensory intact in the recovery room at the end of the procedure. The medications. All sponge instrument and needle counts were correct at the end of the procedure. Anesthesia: GETA Surgeon: Rodney Flaherty Jr Was there an operator/assistant foreman present: No Estimated blood loss (cc): 20 Specimen: None Condition: stable Disposition: PACU
--- NOTE | 2018-01-31 18:29 | Anesthesia Evaluation Post Op ---
Date of Encounter: 01/31/18 Time of Encounter: 18:28 - Vital Signs Vital Signs: Vital Signs/O2 Sat, Most Current Temp Pulse Resp BP Pulse Ox 97.4 F L 95 16 160/74 98 01/31/18 18:01 01/31/18 18:11 01/31/18 18:11 01/31/18 18:11 01/31/18 18:11 - Lungs Lungs: Clear Ascult./Percussion - Airway Airway: Non-obstructed - Cardiovascular Regular Rate - Mental Status Mental Status: Alert & Oriented, Answers Appropriately - Pain Pain Scale: 4 Pain Scale used: Numeric (1 - 10) - Nausea Vomiting Nausea Vomiting: Not Present - Hydration Hydration: Ice chips, Vivas catheter - Discharge PostOp Status: Transfer Patient to floor
[2018-01-31] MEDS ORDERED: Naloxone 0.4 MG/ML INJ IVP PRN (19:01)
[2018-01-31] MEDS ORDERED: Acetaminophen 325 MG TABLET PO PRN (19:01)
[2018-01-31] MEDS ORDERED: DICLOFENAC SODIUM TP PRN (19:01)
[2018-01-31] MEDS ORDERED: *HR* HYDROcodone/Acet 5/325 mg TABLET PO PRN (19:01)
[2018-01-31] MEDS ORDERED: 0.9 % Sodium Chloride 250 ML ONE (19:56)
[2018-01-31] MEDS: Ringers Solution, Lactated 1,000 ML IVC SCH (20:32)
[2018-02-01] MEDS: Ringers Solution, Lactated 1,000 ML IVC SCH (03:08)
[2018-02-01 05:27] LABS: Basophils % 0.1 %; Hematocrit 29.2 % (37.5-50.1); Immature Granulocytes % 0.6 % (0-4); Lymphocytes # 0.4 K/mcL (0.6-4.6); Lymphocytes % 3.6 %; Mean Corpuscular HGB Conc 31.8 g/dL (31.6-35.5); Mean Corpuscular Hemoglobin 25.8 pg (28.0-33.3); Mean Corpuscular Volume 80.9 fL (83.0-100.0); Mean Platelet Volume 9.6 fL (9.4-12.4); Monocytes # 0.4 K/mcL (0.0-1.3); Monocytes % 3.6 %; Platelet Count 299 K/mcL (140-400); Red Blood Count 3.61 M/mcL (4.19-5.50); Red Cell Distribution Width 14.5 % (11.5-14.5); Segmented Neutrophils % 92.1 %
[2018-02-01 05:42] LABS: Hemoglobin 9.3 g/dL (12.9-16.9)
[2018-02-01 05:45] LABS: Calcium 8.8 mg/dL (8.6-10.3); Potassium 5.1 mEq/L (3.5-5.1)
[2018-02-01] MEDS ORDERED: Insulin DETEMIR 100 UNIT/ML X5UNITS SQ ONE ×2 (08:41→13:54)
[2018-02-01] MEDS ORDERED: Dextrose Gel 15 GM/37.5 ML TUBE PO PRN ×2 (08:42)
[2018-02-01] MEDS ORDERED: D5% in Water 1,000 ML IVC PRN (08:42)
[2018-02-01] MEDS ORDERED: *HR* Dextrose 50 % in Water (Syg) 50 ML SYRINGE IVP PRN (08:42)
[2018-02-01] MEDS ORDERED: Aspirin Enteric Coated 81 MG Tablet PO SCH ×2 (09:00)
--- NOTE | 2018-02-01 10:24 | Orthopedics Progress Note ---
Date of Encounter: 02/01/18 Time of Encounter: 11:45 - Assessment and Plan (1) Cervical stenosis of spinal canal Status: Chronic (2) Upper extremity weakness Status: Chronic (3) Cervical myelopathy Status: Chronic (4) Status post cervical spinal fusion Status: Acute Subjective Principal diagnosis: Postop cervical fusion Interval history: POD#1 s/p: Date of procedure: 01/31/18 Pre-op diagnosis: Cervical stenosis, cervical myelopathy, arm weakness Post-op diagnosis: same Operation/Findings: Anterior cervical decompression fusion C4-C6 Okay to resume Plavix if okay per primary team Xrays today: XR/XR cervical spine 2V IMPRESSION: Anterior cervical fusion from C5-C6 without evidence of hardware complication. Gas in the prevertebral soft tissues is postsurgical. D/ / Ward Amador MD / Ward Amador MD Patient resting comfortably in bed. Propped up with pillows for comfort. Spouse at bedside. incision c/d/i. 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 Sensation improved to b/l UE. B/l LE neurovascularly intact. Awaiting PT evaluation Continue with neck brace during all activity and transportation - remove for sleep Keep inicision area clean and dry. DO NOT shave around incision. Remove steri- strips at 1 week postoperative. DO NOT trim suture pedro at incision ends. No lifting greater than 5-10lbs. Use walker as needed for stability. Anticipate gradual improvement of preoperative symptoms. Pain medication per primary team. Keep follow up outpatient as scheduled. Objective Vital signs: Vital Signs Temp Pulse Resp BP Pulse Ox 02/01/18 06:43 98.2 F 88 15 132/77 96 02/01/18 04:15 98.6 F 91 17 125/61 94 01/31/18 23:52 97.8 F 94 16 143/75 96 01/31/18 23:30 97 148/72 97 01/31/18 22:30 92 142/68 96 01/31/18 21:30 98 155/76 96 01/31/18 21:00 94 160/75 94 01/31/18 20:30 101 16 155/76 96 01/31/18 20:18 97.8 F 96 16 154/75 95 01/31/18 20:03 97.0 F L 90 14 160/75 94 01/31/18 20:00 97.0 F L 90 14 160/75 94 01/31/18 19:30 97.0 F L 93 14 161/72 96 01/31/18 18:31 98 14 159/76 96 01/31/18 18:21 96 14 159/73 96 01/31/18 18:11 95 16 160/74 98 01/31/18 18:06 94 16 158/74 99 01/31/18 18:01 97.4 F L 96 16 153/69 99 01/31/18 11:26 98.5 F 73 16 151/65 97 Intake and Output 01/31/18 02/01/18 02/01/18 23:59 07:59 15:59 Intake Total 780 / 780 1100 / 1100 Output Total 895 / 895 Balance -115 / -115 1100 / 1100 Intake: IV Fluids 1100 / 1100 Lactated Ringers 1,000 ML @ 100 1000 / 1000 mls/hr IVC .Q10H [facility] Rx#: [id number] Ancef 2,000 MG In 0.9 % Sodium 100 / 100 Chloride 100 ML @ 200 mls/hr IVPB Q8HR [facility] Rx#:[id number] Oral 480 / 480 Blood Product 300 / 300 Rbcs Leuko Poor As-1 Unit 300 / 300 [id number] Output: Estimated Blood Loss 20 / 20 Urine Amount (Catheter) 175 / 175 Catheter 700 / 700 Urethral (Vivas) 700 / 700 Other: Meal Dinner Breakfast Percent of Meal Consumed 5% Weight 71.8 kg Blood Glucose* 142 304 Patient Weight 02/01/18 23:59 Weight 71.8 kg - Labs CBC & BMP: 02/01/18 04:47 02/01/18 04:47 Labs: Abnormal lab results RBC 3.61 M/mcL (4.19-5.50) L 02/01/18 04:47 Hgb 9.3 g/dL (12.9-16.9) L D 02/01/18 04:47 Hct 29.2 % (37.5-50.1) L 02/01/18 04:47 MCV 80.9 fL (83.0-100.0) L 02/01/18 04:47 MCH 25.8 pg (28.0-33.3) L 02/01/18 04:47 Neutrophils # 10.0 K/mcL (1.6-8.9) H 02/01/18 04:47 Lymphocytes # 0.4 K/mcL (0.6-4.6) L 02/01/18 04:47 PT 12.5 Seconds (9.4-12.1) H 01/31/18 05:49 Sodium 133 mEq/L (136-145) L 02/01/18 04:47 BUN 35 mg/dL (8-23) H 02/01/18 04:47 Creatinine 1.56 mg/dL (0.70-1.30) H 02/01/18 04:47 Est GFR ( Amer) 55 (> 60) L 02/01/18 04:47 Est GFR (Non-Af Amer) 45 (> 60) L 02/01/18 04:47 Glucose 306 mg/dL (70-105) H 02/01/18 04:47 POC Glucose 142 mg/dL (70-99) H 01/31/18 19:52 Iron 23 mcg/dL (65-175) L 01/28/18 03:37 % Saturation 11 % (20-55) L 01/28/18 03:37 Transferrin 143 mg/dL (203-362) L 01/28/18 03:37 Ferritin 675 ng/mL (20-250) H 01/28/18 03:37 Ur Specific [place] 1.009 (1.010-1.025) L 01/28/18 17:30 Urine Protein 30 mg/dL (Neg-Trace) H 01/28/18 17:30 Urine Glucose (UA) 500 mg/dL (Normal) H 01/28/18 17:30 Urine Blood Small (Negative) H 01/28/18 17:30 Urine Microscopic RBC 5-15 per hpf (0-3) H 01/28/18 17:30 Consult Discharge Plan - Plan Instructions: Anemia (GEN) Additional Instructions: Follow-up with orthopedic surgery as scheduled Attending occupational therapy sessions Follow-up through primary care provider for reevaluation. Review of any return of symptoms, worsening weakness, neck pain or any other concerning medical symptoms or signs please presents the emergency department for evaluation. Continue with neck brace during all activity and transportation - remove for sleep Keep inicision area clean and dry. DO NOT shave around incision. Remove steri- strips at 1 week postoperative. DO NOT trim suture pedro at incision ends. No lifting greater than 5-10lbs. Use walker as needed for stability. Anticipate gradual improvement of preoperative symptoms. Keep follow up outpatient as scheduled. Discharge Instructions: Cervical Please call [facility] ([phone]), your Primary Care Physician, or report to the ER if you have any of the following symptoms: Fever greater that 101.5, increased pain/redness/drainage/odor for your incision site or any other concerning symptoms. ACTIVITY * May Shower * No Tub Baths * No Smoking * No Swimming * No Driving * Wear Collar when up walking * Incentive Spirometer 10 times an hour MEDICATIONS: Upon discharge resume your home medications. Take all the medications as prescribed. Take a stool softener if taking narcotic pain medications. Stool softeners are only effective if you drink enough fluids. Drink 6-8 glass of water or fluids a day, unless this is not allowed for another health problem. Despite using stool softeners, if you haven't had a bowel movement in 3 days, please switch to a gentle laxative. Gentle laxatives are sold over the counter. You should have a bowel movement within 24 hours, if not call the office. You will be discharged from the hospital with a prescription for pain medication. You are encouraged to decrease the use of narcotic pain medication as tolerated. Should you require a refill, please call the office. It is best to call 48-72 hours in advance of needing a prescription refill so you don't run out of medication. WOUND CARE: Leave steri-strips in place until they fall off on their own. Pat dry when you get out of the shower. FOLLOW-UP: Please follow up with your surgeon in the orthopedic clinic in 2 weeks from the day of surgery. References: [employer] ([email or web address]) Referrals: Rodney Flaherty Jr, MD [Partnered Physician] - NONE,PCP [Primary Care Provider] - Prescriptions: RX: OxyCODONE Immed Rel [Roxicodone 5 MG] 5 mg PO Q6HR PRN 5 Days #20 tablet PRN Reason: Severe Pain
[2018-02-01] MEDS ORDERED: Insulin LISPRO 300 UNITS/3 ML VIAL SQ SCH ×2 (11:30→21:00)
[2018-02-01] MEDS ORDERED: traMADol 50 MG TABLET PO PRN (13:33)
[2018-02-01] MEDS ORDERED: Insulin Human Regular 5 UNIT in 0.9 % Sodium Chloride 10 ML IV ONE (13:53)
--- NOTE | 2018-02-01 14:03 | Discharge Summary ---
<Elroy Wilkinson - Last Filed: 02/01/18 15:48> Orders not resulted at time of discharge: Pending orders 01/28/18 00:01 NM shelby perf SPECT multi [NM] Routine Date of Encounter: 02/01/18 Time of Encounter: 09:00 - Discharge Diagnosis (1) Cervical stenosis of spinal canal Priority: Primary Status: Acute (2) PVD (peripheral vascular disease) Priority: Secondary Status: Chronic (3) CAD (coronary artery disease) Priority: Secondary Status: Chronic Qualifiers: Coronary Disease-Associated Artery/Lesion type: [place] artery [place] vs. 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 Morales is a 62 year old male with known past medical history of type 2 diabetes, cardiac stents and peripheral vascular stents on chronic dual antiplatelet therapy. He was admitted to orthopedic unit after evaluation by Dr. Flaherty in the outpatient setting. He was evaluated with progressive worsening cervical stenosis resulting in upper extremity weakness and pain. His symptoms had progressed to where surgery was needed urgently. He was admitted to the orthopedic unit, his Plavix was held as this was a chronic long-term medication beyond the necessity of a drug-eluting stent window. 5 days of medical management while waiting for Plavix to decrease in levels prior to surgical intervention. During his inpatient stay he was continued with glucose control, medical management, evaluation by PT and OT. He was evaluated by cardiology for preintervention evaluation. He underwent anterior cervical decompression of C5-C7 and discectomy of C6-C7. He tolerated the procedure well was kept overnight and demonstrated much improvement in his bilateral upper extremity strength and relief of pain. He demonstrated hyperglycemia on 02/01/2018, this is treated medically prior to discharge. Prior to discharge he was okayed to have Plavix restarted, follow-up appointments with orthopedic surgery Dr. Flaherty's office, follow-up with occupational therapy post discharge to improve physical strength and coordination. He was evaluated with no concerning neurovascular changes since surgery. Discharge on 02/01/2018. Discharge discussed with: patient, family - Time Spent with Patient Total time spent providing and/or coordinating discharge services: - Discharge Medications Prescriptions: OxyCODONE Immed Rel [Roxicodone 5 MG] 5 mg PO Q6HR PRN 5 Days #20 tablet PRN Reason: Severe Pain Home Medications: Aspirin [Adult Aspirin] 81 mg PO DAILY 01/25/18 [History] Clopidogrel [Plavix] 75 mg PO DAILY 01/25/18 [History] Cyanocobalamin (Vitamin B-12) [Vitamin B12] 1,000 mcg PO DAILY 01/25/18 [History] Ferrous Sulfate [Iron] 325 mg PO BID 01/25/18 [History] Insulin ASPART [NovoLOG] See Protocol SQ TIDWM 01/25/18 [History] Insulin Glargine [Lantus] 18 - 22 units SQ DAILY 01/25/18 [History] Losartan [Cozaar] 50 mg PO DAILY 01/25/18 [History] Lovastatin 40 mg PO DAILY 01/25/18 [History] Metoprolol [Lopressor] 12.5 mg PO BID 01/25/18 [History] [place]-3/Dha/Epa/Fish Oil [Fish Oil 1,000 mg Softgel] 1,000 mg PO DAILY 01/25/18 [History] Diclofenac Sodium [Voltaren] 1 applic TP BID PRN 01/26/18 [History] OxyCODONE Immed Rel [Roxicodone 5 MG] 5 mg PO Q6HR PRN 5 Days #20 tablet 02/01/18 [Rx] Allergies/Adverse Reactions: Allergy/AdvReac Type Severity Reaction Status Date / Time No Known Allergies Allergy Verified 01/26/18 14:50 Date of admission: 01/25/18 14:41 Primary care physician: PCP NONE Consults: 01/26/18 13:26 Consult to Cardiology [CONS] Routine Comment: Consulting Provider: Cardiology Faby Reason for Consult: getting spine surgery, possibly wednesday. needs cardiac clearance. multiple cormorbidities including DM, CAD, PVD, CKD Call Completed: Yes 01/31/18 19:01 Consult to Occupational Therapy [CONS] Routine Comment: Evaluate, develop and implement POC Reason for Consult: Postoperative rehabilitation Does patient have active BEDREST order?: No Is patient medically & hemodynamically stable?: Yes Patient assessed for mobility or mobilized this visit?: No Consult to Flat Breakdown Processor [CONS] Routine Reason for SW Consult: Postoperative rehabilitation Consult to Spine Navigator [CONS] [CONS] Routine Discharging clinician: Elroy Wilkinson Anticipated date of discharge: 02/01/18 - Constitutional Vitals: Temp Pulse Resp BP Pulse Ox 97.9 F 79 15 150/64 98 02/01/18 11:34 02/01/18 11:34 02/01/18 11:34 02/01/18 11:34 02/01/18 11:34 General appearance: Present: A&O X 3 Exam: General alert awake oriented interactive sitting up in chair in no acute distress HEENT: Normocephalic, atraumatic, pupils equal reactive, nasal cavity, Patent and open oral mucosa moist, cranial nerves II-7 intact, trachea midline, patient demonstrates swallowing mechanism intact. Cardiac regular rate and rhythm positive S1-S2 no murmurs gallops appreciated, radial pulses 2+ bilateral, posterior tibial pulses 2+ bilateral Respiratory: Clear to auscultation bilateral Abdomen: Soft, nontender to palpation, positive bowel sounds Extremities: Symmetric bilateral, patient retains 5 out of 5 bilateral lower [place] strength, neurovascularly intact. 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 - Patient Status Disposition: Home, Self-Care Condition: Good Overall status at discharge: patient is progressing back to baseline - Discharge Instructions Follow Up With: NONE,PCP [Primary Care Provider] - Rodney Flaherty Jr, MD [Partnered Physician] - Additional Instructions: Follow-up with orthopedic surgery as scheduled Attending occupational therapy sessions Follow-up through primary care provider for reevaluation. Review of any return of symptoms, worsening weakness, neck pain or any other concerning medical symptoms or signs please presents the emergency department for evaluation. - Diet and Activity Activity: as per physical therapy, other (Per OT recommendations) Diet: diabetic diet <Liu Ellis - Last Filed: 02/01/18 15:58> - NOTES TO OUTPATIENT PROVIDER Notes to Outpatient Provider: Patient hospitalized here with cervical stenosis and cervical myelopathy and arm weakness. Underwent anterior cervical decompression fusion C4-C6 yesterday and is doing much better today. Stable to be discharged home. Plavix held prior to surgery but can now be resumed. Patient underwent stress test for preop evaluation which was negative for ischemia. He does have uncontrolled blood sugars and will need close follow-up for management of his diabetes. Patient also had an EF of 50% per his echocardiogram. Orders not resulted at time of discharge: Pending orders 01/28/18 00:01 NM shelby perf SPECT multi [NM] Routine Date of Encounter: 02/01/18 Time of Encounter: 09:40 - Discharge Diagnosis (1) Cervical stenosis of spinal canal Status: Acute (2) PVD (peripheral vascular disease) Status: Chronic (3) CAD (coronary artery disease) Status: Chronic Qualifiers: Coronary Disease-Associated Artery/Lesion type: [place] artery [place] vs. 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 Morales is a 62 year old male - Time Spent with Patient Total time spent providing and/or coordinating discharge services: Less than 30 minutes (10 min) Date of admission: 01/25/18 14:41 Primary care physician: PCP NONE Consults: 01/26/18 13:26 Consult to Cardiology [CONS] Routine Comment: Consulting Provider: Cardiology Faby Reason for Consult: getting spine surgery, possibly wednesday. needs cardiac clearance. multiple cormorbidities including DM, CAD, PVD, CKD Call Completed: Yes 01/31/18 19:01 Consult to Occupational Therapy [CONS] Routine Comment: Evaluate, develop and implement POC Reason for Consult: Postoperative rehabilitation Does patient have active BEDREST order?: No Is patient medically & hemodynamically stable?: Yes Patient assessed for mobility or mobilized this visit?: No Consult to Flat Breakdown Processor [CONS] Routine Reason for SW Consult: Postoperative rehabilitation Consult to Spine Navigator [CONS] [CONS] Routine - Constitutional Vitals: Temp Pulse Resp BP Pulse Ox 97.9 F 79 15 150/64 98 02/01/18 11:34 02/01/18 11:34 02/01/18 11:34 02/01/18 11:34 02/01/18 11:34 General appearance: Present: cooperative, A&O X 3, pleasant, answers questions appropriately - Neck Additional comments: Cervical collar in place - Respiratory Respiratory exam: Present: CTAB. Absent: accessory muscle use, rales, rhonchi, wheezes - Cardiovascular Cardiovascular exam: Present: RRR, +S1, +S2. Absent: diastolic murmur, gallop, rubs, systolic murmur - GI/Abdominal GI/Abdominal exam: Present: normal bowel sounds, soft, no peritoneal signs. 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 - Attending Attestation I saw evaluated and examined this patient and my medical decision-making was reviewed with the Resident Physician, Elroy Wilkinson. I agree with the documented findings, disposition and treatment plan as described except to any changes set forth below. We independently had [id number] contact with the patient. Patient with a history of type 2 diabetes, coronary artery disease, hypertension was hospitalized here with bilateral upper extremity weakness that had been progressing in the past couple of months due to cervical stenosis. He was recommended recommended surgery by Dr. Flaherty the spine surgeon and so was admitted here. Patient had been on Plavix and so this was held in anticipation for surgery. Patient finally underwent surgery yesterday after cardiac clearance with a nuclear stress test which was negative for ischemia. Patient does have an EF of 40%. Patient underwent anterior cervical decompression and fusion C4-C6. He was then his been feeling much better with return of sensation in his upper extremities and is able to mobilize his fingers and hands much better. His been cleared for discharge from a surgical standpoint and will be discharged later today and will follow up outpatient with spine surgery and for physical therapy. Patient had does have uncontrolled blood sugars here and he is being treated with subcutaneous insulin.. Patient will be discharged later today once his blood sugars are better controlled. He can follow-up with his primary care provider for further management.
[2018-02-01 15:33] VITALS: BP 153/74
== END 2018-02-01 16:31 | disposition home or self-care (01) | DRG 472 ==
LOC: 3NENU 14:41 → SUATTDRO 14:41
PROVIDERS: ADMIT Hospitalist; ATTEND Internal Medicine